=== PATIENT | male | born 1950 | race Caucasian/White ===

== ENCOUNTER 2018-07-01 05:21 | Inpatient (IN) | payer MEDICARE, OTHER ==
[2018-07-01] VITALS (12 sets, daily range): BP systolic 99–127; BP diastolic 63–92
[~2018-07-01] VITALS: Ht 177.8 cm; Wt 67.1 kg
--- NOTE | 2018-07-01 05:30 | NUR ---
PT CAME TO EMERGENCY DEPT COMPLAINING OF ABD PAIN X FEW HOURS. PT STATES HE FEELS CONSTIPATED. PT AXO4. RESPIRATIONS EVEN AND UNLABORED. PT AMBULATORY WITH STEADY GAIT. PT PUT ON THE MONITOR AND PULSE OX. PENDING EVAL FROM ER .
--- NOTE | 2018-07-01 05:50 | NUR ---
PT UNABLE TO GIVE URINE SAMPLE. ER AWARE.
--- NOTE | 2018-07-01 05:51 | NUR ---
EKG AT BEDSIDE.
--- NOTE | 2018-07-01 05:51 | NUR ---
SCRIPT SUPERVISOR AT BEDSIDE.
[2018-07-01] MEDS ORDERED: MORPHINE SULFATE INJ 4 MG/ML DISP.SYRIN ONE ×2 (06:08→07:54)
[2018-07-01] MEDS ORDERED: ONDANSETRON HCL/PF 4 MG/2 ML VIAL ONE (06:08)
[2018-07-01 06:09] LABS: BASOPHILS % (AUTO) 0.2 % (0.0-2.0); EOSINOPHILS % (AUTO) 0.2 % (0.0-6.0); HEMATOCRIT 46 % (39-51); HEMOGLOBIN 15.5 g/dL (13.5-17.5); LYMPHOCYTES # (AUTO) 1.8 /CMM (0.8-4.8); LYMPHOCYTES % (AUTO) 18.5 % (20.0-44.0); MEAN CORPUSCULAR HGB CONC 34 g/dl (31.0-36.0); MEAN CORPUSCULAR VOLUME 95 fL (80-96); MONOCYTES # (AUTO) 0.5 /CMM (0.1-1.30); MONOCYTES % (AUTO) 4.8 % (2.0-12.0); NEUTROPHILS # (AUTO) 7.4 /CMM (1.8-8.9); NEUTROPHILS % (AUTO) 76.3 % (43.0-81.0); PLATELET COUNT (AUTO) 255 /CMM (150-450); RED BLOOD CELL COUNT(AUTO) 4.87 MIL/uL (4.5-6.0); WHITE BLOOD COUNT (AUTO) 9.7 K/uL (4.3-11.0)
[2018-07-01 06:23] LABS: CALCIUM, SERUM 9.7 mg/dL (8.5-10.1); CARBON DIOXIDE 24 mmol/L (21-32); CHLORIDE 100 mmol/L (98-107); CREATININE 1.3 mg/dL (0.6-1.3); GLUCOSE 136 mg/dL (74-106); SODIUM SERUM 139 mmol/L (136-145); UREA NITROGEN, BLOOD 22 mg/dL (7-18)
[2018-07-01 06:30] LABS: ALANINE AMINOTRANSFERASE 30 U/L (12-78); ALBUMIN 3.4 g/dL (3.4-5.0); ALKALINE PHOSPHATASE 100 U/L (46-116); ASPARTATE AMINOTRANSFERASE 33 U/L (15-37); BILIRUBIN,DIRECT 0.4 mg/dL (0.0-0.2); BILIRUBIN,TOTAL 1.2 mg/dL (0.2-1.0); LIPASE 76 U/L (73-393); TOTAL PROTEIN, SERUM 7.9 g/dL (6.4-8.2)
[2018-07-01] MEDS ORDERED: ONDANSETRON HCL/PF - ER 4 MG/2 ML VIAL IV ONE (06:30)
[2018-07-01] MEDS ORDERED: MORPHINE SULFATE INJ 10 MG/ML DISP.SYRIN IV ONE ×2 (06:30→08:00)
[2018-07-01] MEDS ORDERED: PIPERACILLIN /TAZOBACTAM 3.375 G VIAL IV ONE (06:40)
--- NOTE | 2018-07-01 06:46 | NUR ---
PT TAKEN TO CT.
[2018-07-01] MEDS ORDERED: VANCOMYCIN 1 GM in IV D5W 250 ML IV ONE (07:00)
[2018-07-01] MEDS ORDERED: PIPERACILLIN /TAZOBACTAM 3.375 G in IV D5W 50 ML IV ONE (07:00)
[2018-07-01] MEDS ORDERED: IV NS 0.9% 1,000 ML BAG IV ONE (07:00)
[2018-07-01] MEDS ORDERED: LIDOCAINE 2% JEL UROJET 10 ML MM ONE ×2 (07:07→18:30)
[2018-07-01 07:29] LABS: BILIRUBIN,URINE 1+ (NEGATIVE); BLOOD, URINE 1+ Ery/uL (NEGATIVE); COLOR,URINE YELLOW (YELLOW); KETONES,URINE 2+ (NEGATIVE); LEUKOCYTE ESTERASE ,URINE NEGATIVE (NEGATIVE); NITRITE, URINE NEGATIVE (NEGATIVE); PH,URINE 5.5 (5.0-8.0); PROTEIN,URINE 1+ mg/dl (NEGATIVE); UGLUCOSE NEGATIVE (NEGATIVE)
[2018-07-01 07:30] LABS: APPEARANCE,URINE CLEAR (CLEAR)
--- NOTE | 2018-07-01 07:38 | NUR ---
REPORT GIVEN TO JAYME VIRK FOR CARLA.
[2018-07-01] MEDS ORDERED: CELE-85 PO (07:41)
[2018-07-01 08:02] LABS: BACTERIA,URINE Few /HPF (None Seen); SQUAMOUS EPITHELIAL CELL,UR Rare /HPF (None Seen)
[2018-07-01 08:03] LABS: FINE GRANULAR CASTS,URINE Few /LPF (None Seen); HYALINE CASTS, URINE Few /LPF (None Seen)
[2018-07-01 08:04] LABS: MUCUS,URINE Few /LPF (None Seen)
--- NOTE | 2018-07-01 08:13 | NUR ---
Report/Nurse Knowledge exchange given to RNElsa. No obvious distress, No acute changes states pain "feels better-but still there." Made aware of plan of care and admission. Going to [facility]
--- NOTE | 2018-07-01 08:20 | NUR ---
Paged David Santos for admission
--- NOTE | 2018-07-01 09:07 | NUR ---
Bed changed to ICU Report/Nurse Knowledge Exhange to ANDRA Hilario. No acute changes, No obvious distress states pain "better but still there. Pt made aware of plan of care. Transported to ICU per kristin
--- NOTE | 2018-07-01 10:19 | NUR ---
INITIAL PT BROUGHT UP FROM EMERGENCY ROOM FOR C/C OF LLQ ABDOMINAL PAIN FOR SEVERAL DAYS. PT HAS A HISTORY OF DIVERTICULITIS. CURRENTLY PT ON VRT MECHANIC ST AT 106 ALERT ORIENTED X 4 PT 91% ON ROOM AIR PLACED ON NASAL CANNULA AT 2 LPM SATURATION IMPROVED TO 97%.PT HAS LLQ ABD PAIN WITH MOVEMENT PT GIVEN WARM BLANKET PT HAS TWO PIV ONE IN RIGHT HAND 18G AND THE OTHER 20 G IN LAC BOTH FLUSH WELL WITHOUT PAIN REDNESS OR SWELLING SITE CLEAN AND DRY BOTH CONTINUE TO BE H/L CALL MARAVILLA NEXT TP PT BED IN LOW POSITION WILL CONTINUE TO MONITOR
[2018-07-01] MEDS ORDERED: Z GUARD REMEDY 2 OZ OINT TP PRN (11:00)
[2018-07-01] MEDS ORDERED: ACETAMINOPHEN 325 MG TABLET PO PRN (11:00)
[2018-07-01] MEDS ORDERED: ONDANSETRON HCL/PF 4 MG/2 ML VIAL IVP PRN (11:00)
[2018-07-01] MEDS: IV NS 0.9% 1,000 ML IV PRN ×2 (11:11→23:52)
[2018-07-01] MEDS ORDERED: PIPERACILLIN /TAZOBACTAM 3.375 G in IV D5W 50 ML IV SCH (12:00)
[2018-07-01] MEDS: PIPERACILLIN /TAZOBACTAM 3.375 G in IV D5W 100 ML IV SCH ×2 (14:19→20:31)
[2018-07-01] MEDS: ENOXAPARIN SODIUM 40 MG/0.4 ML DISP.SYRIN SQ SCH (14:22)
[2018-07-01] MEDS: PANTOPRAZOLE 40 MG VIAL IV SCH (14:34)
[2018-07-01] MEDS: MORPHINE SULFATE INJ 2 MG/ML DISP.SYRIN IV PRN (14:37)
--- NOTE | 2018-07-01 18:08 | NUR ---
NO URINE OUTPUT SINCE ADMISSION BLADDER SCAN SHOWED ZERO URINE IN BLADDER. MD BHAVYA RUBIO ORDERED RAMOS CATH.
--- NOTE | 2018-07-01 19:30 | NUR ---
BED AND BREAKFAST INNKEEPER: RECEIVED PT IN BED, A/O X 3. ON 2L 02 VIA NC WT NO ACUTE DISTRESS. ON MONITORING FOR ABDOMINAL PAIN WT NONE NOTED AT THIS TIME. NSR-ST ON NUCLEAR CONTROL ROOM OPERATOR WT HR IN THE 90s-LOW 100s. RT. HAND IV RUNNING NS AT 100ML/HR WT NO S/S OF INFILTRATIONS. RAMOS CATH. DRAINING TEJAL COLORED URINE TO GRAVITY. SAFETY PRECAUTION NOTED WT HOB AT 35 DEGREES, BED LOCKED AND IN LOW POSITION AND WT UPPER SIDE RAILS UP ENABLER. CALL LIGHT KEPT WITHIN REACH.
--- NOTE | 2018-07-01 23:40 | NUR ---
COSMETIC DENTIST: SUKUMAR BASURTO NP CALLED AND UPDATED PT's CONDITION. NOTIFIED HER OF LOW URINE OUTPUT SINCE PT RECEIVED AT 1900. CLOTH PRINTER WT ORDER FOR SURGICAL CONSULT WT DR. FRENCH IN AM. NOTED AND CARRIED OUT.
[2018-07-02] VITALS (26 sets, daily range): BP systolic 82–132; BP diastolic 52–87
[2018-07-02] MEDS: MORPHINE SULFATE INJ 2 MG/ML DISP.SYRIN IV PRN ×2 (00:04→08:24)
[2018-07-02] MEDS: PIPERACILLIN /TAZOBACTAM 3.375 G in IV D5W 100 ML IV SCH ×3 (04:27→21:55)
[2018-07-02 05:27] LABS: BASOPHILS % (AUTO) 0.1 % (0.0-2.0); HEMATOCRIT 45 % (39-51); HEMOGLOBIN 15.1 g/dL (13.5-17.5); LYMPHOCYTES # (AUTO) 0.4 /CMM (0.8-4.8); LYMPHOCYTES % (AUTO) 2.6 % (20.0-44.0); MEAN CORPUSCULAR HGB CONC 34 g/dl (31.0-36.0); MEAN CORPUSCULAR VOLUME 94 fL (80-96); MONOCYTES # (AUTO) 0.7 /CMM (0.1-1.30); MONOCYTES % (AUTO) 4.5 % (2.0-12.0); NEUTROPHILS # (AUTO) 13.7 /CMM (1.8-8.9); NEUTROPHILS % (AUTO) 92.8 % (43.0-81.0); PLATELET COUNT (AUTO) 233 /CMM (150-450); RED BLOOD CELL COUNT(AUTO) 4.78 MIL/uL (4.5-6.0); WHITE BLOOD COUNT (AUTO) 14.8 K/uL (4.3-11.0)
[2018-07-02 05:50] LABS: ALBUMIN 2.1 g/dL (3.4-5.0); BILIRUBIN,TOTAL 0.8 mg/dL (0.2-1.0); CALCIUM, SERUM 8.5 mg/dL (8.5-10.1); CREATININE 1.4 mg/dL (0.6-1.3); MAGNESIUM 1.7 mg/dL (1.8-2.4); PHOSPHORUS 4.1 mg/dL (2.5-4.9); POTASSIUM 4.4 mmol/L (3.5-5.1)
[2018-07-02 06:33] LABS: THYROID STIMULATING HORMONE 1.063 uIU/mL (0.358-3.74)
--- NOTE | 2018-07-02 06:45 | NUR ---
RN ICU: NO CARLA DURING THE SHIFT. NO C/O ABDOMINAL PAIN AT THIS TIME. LACTIC ACID IMPROVED AT 2.0 FROM 2.9. TOTAL URINE [id number]. UNABLE TO COLLECT STOOL SPECIMEN DUE TO NO BOWEL MOVEMENT. WILL ENDORSE TO DAY SHIFT FOR CONTINUITY OF CARE.
--- NOTE | 2018-07-02 08:00 | NUR ---
Pt assisted with am hygiene, updated on plan of care.
--- NOTE | 2018-07-02 08:30 | NUR ---
Pt admits to abd pain pain 8/10 Morphine 2 mg IV.
--- NOTE | 2018-07-02 09:00 | NUR ---
Physical therapist at bedside. Pt was able to get out of bed, ambulated in the room.
[2018-07-02] MEDS: IV NS 0.9% 1,000 ML IV PRN (09:49)
[2018-07-02] MEDS: ENOXAPARIN SODIUM 40 MG/0.4 ML DISP.SYRIN SQ SCH (10:50)
--- NOTE | 2018-07-02 11:30 | NUR ---
Mag 1.7. will repalce with Mag sulf 2 Gr.
[2018-07-02] MEDS: Magnesium 1GM/D5W 100ML PREMIX 100 ML IV SCH ×2 (12:20→13:45)
[2018-07-02] MEDS: PANTOPRAZOLE 40 MG VIAL IV SCH (13:59)
--- NOTE | 2018-07-02 14:00 | NUR ---
FC discontinued. pt able to use urinal. 100 ml out
[2018-07-02] MEDS ORDERED: IV NS 0.9% 1,000 ML IV PRN (15:13)
[2018-07-02] MEDS ORDERED: Magnesium 1GM/D5W 100ML PREMIX PIGGYBACK IV ONE (15:30)
--- NOTE | 2018-07-02 15:30 | NUR ---
Dr. Carpenter consulted if ok to start po clear liquid. will wait till tomorrow to start clear liquid diet. NPO for now continued, will change iv to D51/2 ns with 20 meq of K at 125 ml/h.
[2018-07-02] MEDS: Potassium Chloride 20 MEQ in IV D5/0.45 NACL 1,000 ML IV PRN (16:41)
--- NOTE | 2018-07-02 18:00 | NUR ---
Clean catch urine sample sent for UA and Cult.
[2018-07-02 21:46] LABS: BILIRUBIN,URINE NEGATIVE (NEGATIVE); BLOOD, URINE 1+ Ery/uL (NEGATIVE); COLOR,URINE YELLOW (YELLOW); KETONES,URINE NEGATIVE (NEGATIVE); LEUKOCYTE ESTERASE ,URINE NEGATIVE (NEGATIVE); NITRITE, URINE NEGATIVE (NEGATIVE); PH,URINE 5.5 (5.0-8.0); PROTEIN,URINE 1+ mg/dl (NEGATIVE); UGLUCOSE NEGATIVE (NEGATIVE); UROBILINOGEN,URINE 0.2 EU/dL (0.2)
[2018-07-02 21:59] LABS: APPEARANCE,URINE SLIGHTLY CLOUDY (CLEAR)
[2018-07-02 22:01] LABS: BACTERIA,URINE 2+ /HPF (None Seen); SQUAMOUS EPITHELIAL CELL,UR 0-2 /HPF (None Seen); URIC ACID CRYSTALS,URINE Few /HPF (None Seen); URINE AMORPHOUS URATE Many /HPF (None Seen)
[2018-07-03] VITALS (10 sets, daily range): BP systolic 89–145; BP diastolic 54–90
[2018-07-03] MEDS: Potassium Chloride 20 MEQ in IV D5/0.45 NACL 1,000 ML IV PRN ×3 (00:24→22:58)
[2018-07-03 04:44] LABS: HEMATOCRIT 38 % (39-51); HEMOGLOBIN 12.5 g/dL (13.5-17.5); LYMPHOCYTES # (AUTO) 0.3 /CMM (0.8-4.8); LYMPHOCYTES % (AUTO) 2.3 % (20.0-44.0); MEAN CORPUSCULAR HGB CONC 33 g/dl (31.0-36.0); MEAN CORPUSCULAR VOLUME 93 fL (80-96); MONOCYTES # (AUTO) 0.5 /CMM (0.1-1.30); MONOCYTES % (AUTO) 3.6 % (2.0-12.0); NEUTROPHILS # (AUTO) 13.7 /CMM (1.8-8.9); NEUTROPHILS % (AUTO) 94.1 % (43.0-81.0); PLATELET COUNT (AUTO) 202 /CMM (150-450); RED BLOOD CELL COUNT(AUTO) 4.04 MIL/uL (4.5-6.0); WHITE BLOOD COUNT (AUTO) 14.5 K/uL (4.3-11.0)
[2018-07-03 04:46] LABS: CALCIUM, SERUM 8.6 mg/dL (8.5-10.1); CREATININE 1.2 mg/dL (0.6-1.3); MAGNESIUM 2.5 mg/dL (1.8-2.4); POTASSIUM 4.2 mmol/L (3.5-5.1)
[2018-07-03] MEDS: PIPERACILLIN /TAZOBACTAM 3.375 G in IV D5W 100 ML IV SCH ×3 (05:35→20:25)
--- NOTE | 2018-07-03 06:10 | NUR ---
TRANSPORTED PT TO [facility] AND ENDORSED CARE TO SARAH RN FOR CONTINUITY OF CARE. GAVE BEDSIDE REPORT.
--- NOTE | 2018-07-03 06:11 | NUR ---
RN [facility] NOTE PATIENT IS AOX3, SPEECH CLEAR, TRANSFERRED FROM ICU VIA W/C, DENIES ANY CARDIAC OR RESPIRATORY DISTRESS, ON TELE SR, SKIN KEPT CLEAN, DRY AND INTACT, NPO, RIGHT HAND #18G WITH KCL 20MEQ AT 125ML/HR, LAC #20G SL, BOTH DRESSINGS DRY AND INTACT, PATENT, FLUSHING, BED IN LOW LOCKED POSITION, CALL LIGHT WITHIN REACH WILL CONTINUE TO MONITOR FOR ANY CHANGES IN CONDITION.
--- NOTE | 2018-07-03 07:15 | NUR ---
RN OPENING NOTES RECEIVED REPORT FROM SUEDE CLEANER RN. PT IS A&O X 3. PT IS ON 2 L NC, NPO, L AC 20 GAUGE SL, R HAND IV 18 GAUGE. PT DENIES ANY PAIN AT PRESENT MOMENT AND STATED THAT HE WAS NOT ABLE TO SLEEP LAST NIGHT, NO RESPIRATORY DISTRESS SYMPTOMS. BED IS IN LOW POSITION AND LOCKED. CALL LIGHT WITHIN REACH.
[2018-07-03] MEDS: ENOXAPARIN SODIUM 40 MG/0.4 ML DISP.SYRIN SQ SCH (10:37)
--- NOTE | 2018-07-03 13:00 | NUR ---
RN NOTE: CALLED AND SPOKE WITH DR. GALLARDO RE: THE PATIENT'S ABDOMINAL PAIN 4. MD WAS INFORMED THAT THE PATIENT AHS TYLENOL AND MORPHINE 2MG FOR MILD AND SEVERE PAIN. PER MD, CHANGE THE INDICATION FOR MORPHINE 2MG TO MODERATE TO SEVERE PAIN (4-10). ORDER CHANGED, NOTED AND CARRIED OUT. PATIENT MADE AWARE.
[2018-07-03] MEDS ORDERED: MORPHINE SULFATE INJ 2 MG/ML DISP.SYRIN IV PRN (14:00)
[2018-07-03] MEDS: PANTOPRAZOLE 40 MG VIAL IV SCH (14:35)
--- NOTE | 2018-07-03 18:49 | NUR ---
RN CLOSING NOTES GAVE REPORT TO FORENSICS TEAM DIRECTOR RN. PT IS A&O X 3. PT IS ON 2 L NC,CLEAR LIQUIDS DIET, L AC 20 GAUGE SL, R HAND IV 18 GAUGE. PT DENIES ANY PAIN AT PRESENT MOMENT, NO RESPIRATORY DISTRESS SYMPTOMS. BED IS IN LOW POSITION AND LOCKED. CALL LIGHT WITHIN REACH. WILL ENDORSE CONTINUITY OF CARE TO FORENSICS TEAM DIRECTOR RN.
--- NOTE | 2018-07-03 20:00 | NUR ---
RN [facility] - NOTES - PATIENT IS AOX3, SPEECH CLEAR, DENIES ANY CARDIAC OR RESPIRATORY DISTRESS, ON TELE SR, SKIN KEPT CLEAN, DRY AND INTACT, ON CLEAR LIQUID DIET, LEFT AC 20G WITH KCL 20MEQ AT 125ML/HR, RIGHT HAND 18G SL, BOTH DRESSINGS DRY AND INTACT, PATENT, FLUSHING, BED IN LOW LOCKED POSITION, CALL LIGHT WITHIN REACH WILL CONTINUE TO MONITOR FOR ANY CHANGES IN CONDITION.
--- NOTE | 2018-07-03 23:54 | NUR ---
pt refused midnight vital signs, says he wants to sleep
[2018-07-04 04:00] VITALS: BP 130/85
[2018-07-04] MEDS: PIPERACILLIN /TAZOBACTAM 3.375 G in IV D5W 100 ML IV SCH ×2 (05:19→13:02)
[2018-07-04 06:29] LABS: BASOPHILS % (AUTO) 0.2 % (0.0-2.0); HEMATOCRIT 36 % (39-51); LYMPHOCYTES # (AUTO) 0.5 /CMM (0.8-4.8); LYMPHOCYTES % (AUTO) 3.4 % (20.0-44.0); MEAN CORPUSCULAR HGB CONC 33 g/dl (31.0-36.0); MEAN CORPUSCULAR VOLUME 93 fL (80-96); MONOCYTES # (AUTO) 0.5 /CMM (0.1-1.30); MONOCYTES % (AUTO) 3.3 % (2.0-12.0); NEUTROPHILS % (AUTO) 93.1 % (43.0-81.0); PLATELET COUNT (AUTO) 189 /CMM (150-450); RED BLOOD CELL COUNT(AUTO) 3.86 MIL/uL (4.5-6.0); WHITE BLOOD COUNT (AUTO) 16.1 K/uL (4.3-11.0)
[2018-07-04 06:43] LABS: CALCIUM, SERUM 8.7 mg/dL (8.5-10.1); CREATININE 1.3 mg/dL (0.6-1.3); PHOSPHORUS 1.3 mg/dL (2.5-4.9); POTASSIUM 3.5 mmol/L (3.5-5.1)
--- NOTE | 2018-07-04 07:05 | NUR ---
RN NOTES RECEIVED PT ON BED, AOX3, ON 2L N/C , RESPIRATION EVEN AND UNLABORED, ON TELE SR HR IN 70'S , LEFT AC IV SITE 20G WITH KCL 20MEQ AT 125ML/HR RUNNING , RIGHT HAND 18G SL, BOTH DRESSINGS DRY AND INTACT, PATENT, FLUSHING, SR UP x3, CALL LIGHT WITHIN EASY REACH ,BED LOCKED AND IN LOWEST POSITION , CONTINUE TO MONITOR.
[2018-07-04 08:00] VITALS: BP 124/81
[2018-07-04] MEDS: Potassium Chloride 20 MEQ in IV D5/0.45 NACL 1,000 ML IV PRN ×2 (09:08→21:16)
[2018-07-04 09:32] LABS: BAND % (MANUAL) 15 % (0.0-5.0); EOSINOPHILS % (MANUAL) 1 % (0-4); LYMPHOCYTES % (MANUAL) 1 % (16-48); MONOCYTES % (MANUAL) 4 % (0-11.0); NEUTROPHILS % (MANUAL) 79 (42-76)
[2018-07-04] MEDS ORDERED: CT SWABBABLE VALVE TRANS SET 1 EA INFUS.SET MC ONE (10:00)
[2018-07-04] MEDS ORDERED: IOHEXOL-300 100 ML VIAL IV ONE (10:00)
[2018-07-04] MEDS ORDERED: IV NS 0.9% 250 ML IV ONE (10:00)
[2018-07-04] MEDS ORDERED: NEUTRA PHOS 1 POWD.PACKET PO ONE (10:30)
[2018-07-04] MEDS: ENOXAPARIN SODIUM 40 MG/0.4 ML DISP.SYRIN SQ SCH (10:36)
[2018-07-04 11:36] LABS: CREATININE, URINE 86.3 MG/DL (30.0-125.0); URINE TOTAL PROTEIN 95.6 mg/dL (0-11.9)
[2018-07-04 11:39] LABS: APPEARANCE,URINE CLEAR (CLEAR); BILIRUBIN,URINE NEGATIVE (NEGATIVE); BLOOD, URINE 1+ Ery/uL (NEGATIVE); COLOR,URINE YELLOW (YELLOW); KETONES,URINE NEGATIVE (NEGATIVE); LEUKOCYTE ESTERASE ,URINE NEGATIVE (NEGATIVE); NITRITE, URINE NEGATIVE (NEGATIVE); PH,URINE 5.5 (5.0-8.0); PROTEIN,URINE 1+ mg/dl (NEGATIVE); UGLUCOSE NEGATIVE (NEGATIVE); UROBILINOGEN,URINE 0.2 EU/dL (0.2)
[2018-07-04 11:55] LABS: BACTERIA,URINE Rare /HPF (None Seen); FINE GRANULAR CASTS,URINE Few /LPF (None Seen); RBC,URINE 0-2 /HPF (0-2); SQUAMOUS EPITHELIAL CELL,UR None Seen /HPF (None Seen); URINE AMORPHOUS PHOSPHATES Many /HPF (None Seen); WBC,URINE NONE SEEN /HPF (0-3)
[2018-07-04 12:25] VITALS: BP 128/82
[2018-07-04 12:30] LABS: EOSINOPHIL,URINE None Seen
[2018-07-04] MEDS: PANTOPRAZOLE 40 MG VIAL IV SCH (13:37)
--- NOTE | 2018-07-04 14:00 | NUR ---
RN NOTES CALL RECEIVED FROM RADIOLOGIST REGRADING CRITICAL ABD CT RESULTS, DR FRENCH AN DR GALLARDO NOTIFIED, SURGICAL CONSENT OBTAINED FROM PT PER DR FRENCH ORDER .
[2018-07-04 16:00] VITALS: BP 134/88
[2018-07-04] MEDS ORDERED: LIDOCAINE HCL/PF 1% 30 ML SDV ONE (16:08)
[2018-07-04] MEDS ORDERED: BUPIVACAINE MPF 0.5% W/EPI INJ 30 ML VIAL ONE (16:08)
[2018-07-04] MEDS ORDERED: BUPIVACAINE 0.5 % PF 150 MG/30 ML VIAL ONE (16:08)
[2018-07-04] MEDS ORDERED: ANESTHESIA TRAY IN PYXIS 1 EA TRAY MC ONE (16:08)
--- NOTE | 2018-07-04 16:13 | NUR ---
RN NOTES PT TO OR AT THIS TIME .
[2018-07-04] MEDS ORDERED: ROCURONIUM BROMIDE 50 MG/5 ML ONE ×2 (16:22→17:16)
[2018-07-04] MEDS ORDERED: DESFLURANE 240 ML BOTTLE IH ONE (16:30)
[2018-07-04] MEDS ORDERED: FENTANYL PF 100MCG/2ML AMPUL ONE (17:03)
[2018-07-04] MEDS ORDERED: METRONIDAZOLE 500MG/ NS 100ML 100 ML IV ONE (17:28)
[2018-07-04] MEDS ORDERED: FEE PK DOSING 1 MIN EA MC ONE (17:43)
[2018-07-04] MEDS ORDERED: HYDROMORPHONE INJ 2 MG/ML DISP.SYRIN ONE (18:35)
[2018-07-04 20:00] VITALS: BP 118/71
--- NOTE | 2018-07-04 20:00 | NUR ---
MS/NOTES: PT. CAME BACK FROM POST OP AT ABOUT 1955. ALERT AND ORIENTED X 3. W/ DRESSING INTACT MID ABDOMEN W/ MEPILEX COVERED. W/ COLOSTOMY W/ SLIGHT RED TINGED DRAINAGE NOTED. W/ MAXIMO DRAINING SEROSANGUINOUS DRAINAGE NOTED. W/ F/C DRAINING YELLOW COLOR URINE. W/ SCD ON. W/ RT. ARM G 22 PATENT AND INTACT W/ IVF ON. INSERTED LFA G 20 DUE TO PT. ON MULTIPLE ANTIBIOTICS. PT. REQUESTED ICE CHIPS ONLY. " I WANT TO SLEEP. PLS. I AM TIRED." CALL LIGHT W/REACH. WILL CONTINUE TO MONITOR.
[2018-07-04] MEDS: VANCOMYCIN 0.75 GM in IV D5W 250 ML IV SCH (21:15)
[2018-07-04] MEDS: FLUCONAZOLE IN NS 100 MG in PREMIX 1 EA IV SCH ×2 (22:03)
[2018-07-04] MEDS: MEROPENEM 1 G in IV NS 0.9% 100 ML IV SCH (22:26)
--- NOTE | 2018-07-04 22:45 | NUR ---
MS/RN NOTED: REPORT GIVEN TO SULLY DAVID FOR CARLA.
--- NOTE | 2018-07-04 22:50 | NUR ---
MS RN NOTES Assume care of patient. Patient on bed comfortably asleep. No discomfort noted at this time. Will continue to monitor accordingly.
[2018-07-05] MEDS: CEFAZOLIN 1 GM in IV D5W 50 ML IV SCH ×2 (00:43→08:00)
[2018-07-05] MEDS: METRONIDAZOLE 500MG/ NS 100ML 500 MG in PREMIX 1 EA IV SCH ×2 (01:03→10:38)
[2018-07-05] MEDS: IV D5/0.45 NACL W/20 MEQ KCL 1L IV PRN ×6 (03:28→20:43)
[2018-07-05 04:00] VITALS: BP 134/85
--- NOTE | 2018-07-05 06:29 | NUR ---
MS RN CLOSING NOTES Patient awake on high-Coppola's position on bed with patent peripheral IV lines RFa G#22 with KCL infusing well @ 150ml/hr as ordered; LFA G#20 SL. With patent MAXIMO drain suction to drain with serosanguineous fluid output noted. FC removed as ordered. Instructed patient that he may feel burning sensation but have to report to HCP for worsening pain, and no UO within 2 hours. Encouraged patient to increase oral fluid intake as tolerated. Urinal at bedside. Total Urine output 900 ml clear yellow. Patient denies discomfort at this time. No SOB/respiratory distress noted, on O2 via NC @ 2LPM. All needs attended. Due meds given as ordered. Kept bed low and locked, call light at bedside. Endorsed to the next shift.
[2018-07-05 07:15] LABS: BASOPHILS % (AUTO) 0.2 % (0.0-2.0); HEMATOCRIT 38 % (39-51); HEMOGLOBIN 12.6 g/dL (13.5-17.5); LYMPHOCYTES # (AUTO) 0.5 /CMM (0.8-4.8); LYMPHOCYTES % (AUTO) 2.8 % (20.0-44.0); MEAN CORPUSCULAR HGB CONC 33 g/dl (31.0-36.0); MEAN CORPUSCULAR VOLUME 93 fL (80-96); MONOCYTES % (AUTO) 6.2 % (2.0-12.0); NEUTROPHILS # (AUTO) 14.9 /CMM (1.8-8.9); NEUTROPHILS % (AUTO) 90.8 % (43.0-81.0); PLATELET COUNT (AUTO) 224 /CMM (150-450); RED BLOOD CELL COUNT(AUTO) 4.08 MIL/uL (4.5-6.0); WHITE BLOOD COUNT (AUTO) 16.4 K/uL (4.3-11.0)
[2018-07-05 07:26] LABS: ALBUMIN 1.7 g/dL (3.4-5.0); BILIRUBIN,TOTAL 0.5 mg/dL (0.2-1.0); CREATININE 1.1 mg/dL (0.6-1.3); POTASSIUM 3.8 mmol/L (3.5-5.1); TOTAL PROTEIN, SERUM 5.9 g/dL (6.4-8.2)
--- NOTE | 2018-07-05 07:30 | NUR ---
RN AM SHIFT NOTE PATIENT IN BED, ALERT AND ORTENTED X4. NO COMPLAINTS OR PAIN AT THIS TIME. IV PATENT AND INTACT. ATB THERAPY RUNNING, CLEAR LIQUIDS ORDERERD ONLY AT THIS TIME. F/C DICONTINUED, USE OF URINAL. VITALS WNL CONTINUE TO MONITOR. WOUND CULTURE PENDING ABD. CONTINUE TO MONITOR.
[2018-07-05 08:00] VITALS: BP 133/89
[2018-07-05 08:36] LABS: BAND % (MANUAL) 2 % (0.0-5.0); LYMPHOCYTES % (MANUAL) 3 % (16-48); MONOCYTES % (MANUAL) 8 % (0-11.0); NEUTROPHILS % (MANUAL) 87 (42-76)
[2018-07-05] MEDS: METOCLOPRAMIDE HCL 10 MG/2 ML VIAL IV SCH ×4 (09:03→23:05)
[2018-07-05] MEDS: VANCOMYCIN 0.75 GM in IV D5W 250 ML IV SCH ×2 (09:04→20:43)
[2018-07-05] MEDS: ENOXAPARIN SODIUM 40 MG/0.4 ML DISP.SYRIN SQ SCH (10:25)
[2018-07-05] MEDS: MEROPENEM 1 G in IV NS 0.9% 100 ML IV SCH ×2 (10:38→22:07)
[2018-07-05] MEDS ORDERED: K PHOS NEUTRAL 250 MG TABLET PO ONE (11:30)
[2018-07-05 13:00] VITALS: BP 133/89
[2018-07-05 16:00] VITALS: BP 124/78
[2018-07-05] MEDS: PANTOPRAZOLE 40 MG VIAL IV SCH (16:24)
--- NOTE | 2018-07-05 19:15 | NUR ---
RN CLOSING NOTE PATIENT IN BED, ALERT AND ORTENTED X4. NO COMPLAINTS OR PAIN AT THIS TIME. IV PATENT AND INTACT. ATB THERAPY RUNNING, CLEAR LIQUIDS ORDERERD ONLY AT THIS TIME. F/C DICONTINUED, USE OF URINAL. VITALS WNL CONTINUE TO MONITOR. WOUND CULTURE PENDING ABD. IV ATB THERAPY FLAGYL AND ANCEPH STOPPED. CONTINUE MERRUM AND VANCO. IV FLUIDS STILL RUNNING 150ML. EMPTIED MAXIMO DRAIN 100ML SEROSANGUINEOUS FLUID, EMPTIED COLOSTOMY BAG WITH 300 ML SEROSANGUINEOUS FLUID. CONTINUE TO MONITOR PATIENT.
[2018-07-05 20:00] VITALS: BP 132/86
--- NOTE | 2018-07-05 20:00 | NUR ---
RN OPENING NOTES RECEIVED REPORT FROM BOLA VIRK. PATIENT A/A/O X4, ABLE TO MAKE NEEDS KNOWN. BREATHING EVEN & UNLABORED, TOLERATING ROOM AIR. DENIES ANY SOB OR DIFFICULTY BREATHING. RADIAL PULSES PRESENT. LEFT FOREARM IV #20 W/ IVF D5 1/2 NS W/ 20 MEQ KCL INFUSING WELL @ 150 ML/HR. ABLE TO AMBULATE TO BATHROOM W/ ASSIST & USE URINAL. DENIES ANY PAIN OR DISCOMFORT @ THIS TIME. SAFETY MEASURES IN PLACE W/ SIDE RAILS UP & CALL LIGHT WITHIN REACH. INSTRUCTED TO USE CALL LIGHT FOR ASSISTANCE. WILL CONTINUE TO MONITOR.
[2018-07-05 21:00] VITALS: BP 132/86
[2018-07-05] MEDS: FLUCONAZOLE IN NS 100 MG in PREMIX 1 EA IV SCH ×2 (23:05)
[2018-07-06] MEDS: IV D5/0.45 NACL W/20 MEQ KCL 1L IV PRN ×2 (03:23)
[2018-07-06 05:00] VITALS: BP 146/89
[2018-07-06] MEDS: METOCLOPRAMIDE HCL 10 MG/2 ML VIAL IV SCH ×3 (06:04→18:54)
[2018-07-06] MEDS: VANCOMYCIN 0.75 GM in IV D5W 250 ML IV SCH (07:58)
[2018-07-06 07:59] LABS: EOSINOPHILS % (AUTO) 0.5 % (0.0-6.0); HEMATOCRIT 37 % (39-51); HEMOGLOBIN 12.4 g/dL (13.5-17.5); LYMPHOCYTES # (AUTO) 1.2 /CMM (0.8-4.8); LYMPHOCYTES % (AUTO) 8.5 % (20.0-44.0); MEAN CORPUSCULAR HGB CONC 34 g/dl (31.0-36.0); MEAN CORPUSCULAR VOLUME 93 fL (80-96); MONOCYTES # (AUTO) 1.3 /CMM (0.1-1.30); MONOCYTES % (AUTO) 9.5 % (2.0-12.0); NEUTROPHILS % (AUTO) 81.5 % (43.0-81.0); PLATELET COUNT (AUTO) 264 /CMM (150-450); RED BLOOD CELL COUNT(AUTO) 3.98 MIL/uL (4.5-6.0); WHITE BLOOD COUNT (AUTO) 13.6 K/uL (4.3-11.0)
[2018-07-06 08:00] VITALS: BP 154/99
[2018-07-06 08:06] LABS: ALBUMIN 1.8 g/dL (3.4-5.0); BILIRUBIN,TOTAL 0.6 mg/dL (0.2-1.0); CREATININE 1.1 mg/dL (0.6-1.3); POTASSIUM 3.6 mmol/L (3.5-5.1); TOTAL PROTEIN, SERUM 5.9 g/dL (6.4-8.2)
[2018-07-06] MEDS: MEROPENEM 1 G in IV NS 0.9% 100 ML IV SCH ×2 (09:25→20:53)
[2018-07-06] MEDS: ENOXAPARIN SODIUM 40 MG/0.4 ML DISP.SYRIN SQ SCH (10:29)
[2018-07-06] MEDS ORDERED: ZOLPIDEM TARTRATE 5 MG TABLET PO PRN (12:30)
[2018-07-06] MEDS: METRONIDAZOLE 500MG/ NS 100ML 500 MG in PREMIX 1 EA IV SCH ×2 (12:46→21:55)
[2018-07-06 13:00] VITALS: BP 118/70
[2018-07-06] MEDS: PANTOPRAZOLE 40 MG VIAL IV SCH (15:40)
[2018-07-06 16:00] VITALS: BP 133/84
[2018-07-06] MEDS ORDERED: POTASSIUM CHLORIDE 20 MEQ TAB.PRT.SR PO ONE (17:00)
[2018-07-06] MEDS ORDERED: FUROSEMIDE 20 MG/2 ML VIAL IV ONE (17:00)
--- NOTE | 2018-07-06 19:51 | NUR ---
RN CLOSING NOTE RN CLOSING NOTE PATIENT OUTPUT MAXIMO DRAIN 20ML, COLOSTOMY BAG CHANGED OUTPUT RED AND BROWN LIQUID, NO FORMED STOOL. COLOSTOMY BAG CHANGED. IV MEDICATION HUNG. MD SAW PATIENT AND D/C IV FLUIDS AND GAVE DOSE OF LASIX AND POTASSIUM. PATIENT WAS ABLE TO AMBULATE AND GET OUT OF BED. CONTINUE TO MONITOR.
[2018-07-06 20:00] VITALS: BP 115/78
[2018-07-06 22:41] VITALS: BP 115/78
[2018-07-07] MEDS: METOCLOPRAMIDE HCL 10 MG/2 ML VIAL IV SCH ×4 (00:54→18:03)
[2018-07-07 04:00] VITALS: BP 126/81
[2018-07-07] MEDS: METRONIDAZOLE 500MG/ NS 100ML 500 MG in PREMIX 1 EA IV SCH ×3 (05:04→21:14)
--- NOTE | 2018-07-07 06:48 | NUR ---
RN CLOSING NOTE WITH NO ACUTE DISTRESS OBSERVED OVERNIGHT. AFEBRILE. ATB GIVEN ORDERED. DRESSING CHANGE DONE FOR NOTED SOILAGE. MID-ABDOMINAL AREA SURGICAL SITE WITH JENNIFER INTACT, NO BLEEDING/DRAINAGE NOTED, NO SIGNS OF ACUTE INFECTION. COLOSTOMY FUNCTIONING WELL, BAG CHANGED NEEDED. MAXIMO DRAIN INTACT AND IN PLACE, CONNECTION TO SUCTION BULB WITH SEROSANGUINEOUS DRAINAGE. NEEDS ANTICIPATED AND MET. SAFETY AND COMFORT ENSURED. CALL LIGHT IN REACH. WILL ENDORSE ACCORDINGLY.
--- NOTE | 2018-07-07 07:00 | NUR ---
MS RN OPENING NOTE RECEIVED REPORT FROM BEAM MACHINE OPERATOR NURSE. PT RESTING ON BED. ALERT AND ORIENTED X3. PT ON ROOM AIR WITH NO ACUTE DISTRESS AND SOB NOTED. IV SITE LEFT AC 20G, DRESSING CDI. MID-ABDOMINAL AREA SURGICAL SITE WITH JENNIFER INTACT, NO BLEEDING/DRAINAGE NOTED, NO SIGNS OF ACUTE INFECTION. COLOSTOMY FUNCTIONING WELL. MAXIMO DRAIN INTACT AND IN PLACE, CONNECTION TO SUCTION BULB WITH SEROSANGUINEOUS DRAINAGE. SAFETY AND COMFORT ENSURED. BED LOCKED AND IN LOWEST POSITION. CALL LIGHT WITHIN REACH. WILL CONTINUE TO MONITOR THROUGHOUT SHIFT.
[2018-07-07 07:16] LABS: ALBUMIN 1.8 g/dL (3.4-5.0); BILIRUBIN,TOTAL 0.8 mg/dL (0.2-1.0); CALCIUM, SERUM 8.2 mg/dL (8.5-10.1); MAGNESIUM 1.7 mg/dL (1.8-2.4); PHOSPHORUS 2.7 mg/dL (2.5-4.9); POTASSIUM 3.6 mmol/L (3.5-5.1); TOTAL PROTEIN, SERUM 5.6 g/dL (6.4-8.2)
[2018-07-07 07:26] LABS: BASOPHILS % (AUTO) 0.1 % (0.0-2.0); EOSINOPHILS % (AUTO) 0.6 % (0.0-6.0); HEMATOCRIT 36 % (39-51); HEMOGLOBIN 12.1 g/dL (13.5-17.5); LYMPHOCYTES # (AUTO) 1.4 /CMM (0.8-4.8); LYMPHOCYTES % (AUTO) 9.5 % (20.0-44.0); MEAN CORPUSCULAR HGB CONC 33 g/dl (31.0-36.0); MEAN CORPUSCULAR VOLUME 92 fL (80-96); MONOCYTES # (AUTO) 1.1 /CMM (0.1-1.30); MONOCYTES % (AUTO) 7.2 % (2.0-12.0); NEUTROPHILS # (AUTO) 12.2 /CMM (1.8-8.9); NEUTROPHILS % (AUTO) 82.6 % (43.0-81.0); PLATELET COUNT (AUTO) 271 /CMM (150-450); RED BLOOD CELL COUNT(AUTO) 3.94 MIL/uL (4.5-6.0); WHITE BLOOD COUNT (AUTO) 14.7 K/uL (4.3-11.0)
[2018-07-07 08:00] VITALS: BP 132/89
[2018-07-07] MEDS: MEROPENEM 1 G in IV NS 0.9% 100 ML IV SCH ×2 (09:08→21:14)
--- NOTE | 2018-07-07 09:15 | NUR ---
MS RN NOTES ASSESSED PATIENT'S COLOSTOMY SITE, OSTOMY PINK, AREA CLEAN, DRY, AND INTACT. PATIENT EDUCATED ABOUT COLOSTOMY CARE AND GIVEN COLOSTOMY CARE HANDOUTS.
[2018-07-07] MEDS: Magnesium 1GM/D5W 100ML PREMIX 100 ML IV SCH ×2 (11:25→12:48)
[2018-07-07] MEDS: ENOXAPARIN SODIUM 40 MG/0.4 ML DISP.SYRIN SQ SCH (11:27)
[2018-07-07] MEDS ORDERED: POTASSIUM CHLORIDE 20 MEQ TAB.PRT.SR PO ONE (12:30)
[2018-07-07] MEDS: PANTOPRAZOLE 40 MG VIAL IV SCH (15:18)
[2018-07-07 16:00] VITALS: BP 126/80
--- NOTE | 2018-07-07 19:05 | NUR ---
MS RN CLOSING NOTE PT RESTING ON BED. ALERT AND ORIENTED X3. PT ON ROOM AIR WITH NO ACUTE DISTRESS AND SOB NOTED. IV SITE LEFT UPPER ARM 20G, DRESSING CDI. MID-ABDOMINAL AREA SURGICAL SITE WITH JENNIFER INTACT, NO BLEEDING/DRAINAGE NOTED, NO SIGNS OF ACUTE INFECTION. PT AFEBRILE. COLOSTOMY FUNCTIONING WELL. MAXIMO DRAIN INTACT AND IN PLACE, CONNECTION TO SUCTION BULB WITH SEROSANGUINEOUS DRAINAGE. SAFETY AND COMFORT ENSURED. BED LOCKED AND IN LOWEST POSITION. CALL LIGHT WITHIN REACH. NO ACUTE CHANGES THROUGHOUT SHIFT. WILL ENDORSE TO RELAY MAN NURSE FOR CARLA.
[2018-07-07 20:00] VITALS: BP 128/64
[2018-07-08 04:00] VITALS: BP 135/74
[2018-07-08] MEDS: METOCLOPRAMIDE HCL 10 MG/2 ML VIAL IV SCH ×4 (04:06→18:29)
[2018-07-08] MEDS: METRONIDAZOLE 500MG/ NS 100ML 500 MG in PREMIX 1 EA IV SCH ×3 (04:06→21:14)
[2018-07-08] MEDS: MORPHINE SULFATE INJ 4 MG/ML DISP.SYRIN IV PRN ×2 (04:17→21:14)
[2018-07-08 06:22] LABS: BASOPHILS % (AUTO) 0.1 % (0.0-2.0); EOSINOPHILS % (AUTO) 0.6 % (0.0-6.0); HEMATOCRIT 36 % (39-51); LYMPHOCYTES # (AUTO) 1.3 /CMM (0.8-4.8); LYMPHOCYTES % (AUTO) 7.8 % (20.0-44.0); MEAN CORPUSCULAR HGB CONC 33 g/dl (31.0-36.0); MEAN CORPUSCULAR VOLUME 92 fL (80-96); MONOCYTES % (AUTO) 5.7 % (2.0-12.0); NEUTROPHILS # (AUTO) 14.7 /CMM (1.8-8.9); NEUTROPHILS % (AUTO) 85.8 % (43.0-81.0); PLATELET COUNT (AUTO) 327 /CMM (150-450); RED BLOOD CELL COUNT(AUTO) 3.91 MIL/uL (4.5-6.0); WHITE BLOOD COUNT (AUTO) 17.1 K/uL (4.3-11.0)
[2018-07-08 06:26] LABS: CALCIUM, SERUM 8.3 mg/dL (8.5-10.1); CREATININE 1.1 mg/dL (0.6-1.3); MAGNESIUM 2.3 mg/dL (1.8-2.4); POTASSIUM 4.6 mmol/L (3.5-5.1)
[2018-07-08 06:59] VITALS: BP 125/64
[2018-07-08 08:00] VITALS: BP 130/80
[2018-07-08] MEDS: MEROPENEM 1 G in IV NS 0.9% 100 ML IV SCH ×2 (09:08→21:14)
--- NOTE | 2018-07-08 11:30 | NUR ---
DR. FRENCH IN AND MAXIMO BULB REMOVED.TOLERATED WELL.
[2018-07-08] MEDS: PANTOPRAZOLE 40 MG VIAL IV SCH (15:09)
[2018-07-08 16:00] VITALS: BP 123/72
--- NOTE | 2018-07-08 17:30 | NUR ---
SMALL AMT. SOFT STOOL DRAINING FROM COLOSTOMY.
--- NOTE | 2018-07-08 18:00 | NUR ---
STARTED ON INCENTIVE SPIROMETER,POST OP DRESSING CHANGED.UP AMBULATING IN HALLS.
[2018-07-08 20:00] VITALS: BP 103/78
[2018-07-09 04:00] VITALS: BP 119/79
[2018-07-09] MEDS: METOCLOPRAMIDE HCL 10 MG/2 ML VIAL IV SCH ×5 (05:55→23:54)
[2018-07-09] MEDS: METRONIDAZOLE 500MG/ NS 100ML 500 MG in PREMIX 1 EA IV SCH ×3 (05:57→21:28)
[2018-07-09 06:41] LABS: BASOPHILS % (AUTO) 0.1 % (0.0-2.0); EOSINOPHILS % (AUTO) 0.7 % (0.0-6.0); HEMATOCRIT 39 % (39-51); HEMOGLOBIN 12.8 g/dL (13.5-17.5); LYMPHOCYTES # (AUTO) 1.7 /CMM (0.8-4.8); LYMPHOCYTES % (AUTO) 8.7 % (20.0-44.0); MEAN CORPUSCULAR HGB CONC 33 g/dl (31.0-36.0); MEAN CORPUSCULAR VOLUME 93 fL (80-96); MONOCYTES # (AUTO) 1.5 /CMM (0.1-1.30); MONOCYTES % (AUTO) 7.6 % (2.0-12.0); NEUTROPHILS # (AUTO) 16.6 /CMM (1.8-8.9); NEUTROPHILS % (AUTO) 82.9 % (43.0-81.0); PLATELET COUNT (AUTO) 418 /CMM (150-450); RED BLOOD CELL COUNT(AUTO) 4.14 MIL/uL (4.5-6.0)
[2018-07-09 06:54] LABS: CREATININE 1.1 mg/dL (0.6-1.3); POTASSIUM 4.6 mmol/L (3.5-5.1)
[2018-07-09 07:58] LABS: BAND % (MANUAL) 6 % (0.0-5.0); EOSINOPHILS % (MANUAL) 1 % (0-4); LYMPHOCYTES % (MANUAL) 11 % (16-48); MONOCYTES % (MANUAL) 4 % (0-11.0); NEUTROPHILS % (MANUAL) 78 (42-76)
[2018-07-09 08:00] VITALS: BP 117/75
[2018-07-09] MEDS: MEROPENEM 1 G in IV NS 0.9% 100 ML IV SCH ×2 (09:37→20:20)
[2018-07-09] MEDS ORDERED: IOHEXOL-300 100 ML VIAL IV ONE (12:30)
[2018-07-09] MEDS ORDERED: IV NS 0.9% 250 ML IV ONE (12:31)
[2018-07-09] MEDS ORDERED: CT SWABBABLE VALVE TRANS SET 1 EA INFUS.SET MC ONE (12:31)
[2018-07-09] MEDS: PANTOPRAZOLE 40 MG VIAL IV SCH (15:18)
[2018-07-09 16:00] VITALS: BP 105/85
[2018-07-09 16:01] VITALS: BP 117/75
[2018-07-09] MEDS ORDERED: FEE PK DOSING 1 MIN EA MC ONE (17:44)
[2018-07-09] MEDS: VANCOMYCIN 1 GM in IV D5W 250 ML IV SCH (18:52)
[2018-07-09] MEDS: FLUCONAZOLE IN NS 100 MG in PREMIX 1 EA IV SCH ×2 (18:53)
--- NOTE | 2018-07-09 19:46 | NUR ---
HOSPITAL NURSE OPENING NOTES RECEIVED REPORT FROM SISAL OPERATOR NURSE. PT RESTING ON BED. ALERT AND ORIENTED X3. PT ON ROOM AIR WITH NO ACUTE DISTRESS AND SOB NOTED. IV SITE LEFT AC 20G, DRESSING CDI. MID-ABDOMINAL AREA SURGICAL SITE WITH JENNIFER INTACT, NO BLEEDING/DRAINAGE NOTED, NO SIGNS OF ACUTE INFECTION. COLOSTOMY FUNCTIONING WELL. MAXIMO DRAIN INTACT AND IN PLACE, CONNECTION TO SUCTION BULB WITH SEROSANGUINEOUS DRAINAGE. SAFETY AND COMFORT ENSURED. BED LOCKED AND IN LOWEST POSITION. CALL LIGHT WITHIN REACH. WILL CONTINUE TO MONITOR THROUGHOUT SHIFT.
--- NOTE | 2018-07-09 19:47 | NUR ---
MS RN CLOSING NOTES PT RESTING ON BED. ALERT AND ORIENTED X3. PT ON ROOM AIR WITH NO ACUTE DISTRESS AND SOB NOTED. IV SITE LEFT UPPER ARM 20G, DRESSING CDI. MID-ABDOMINAL AREA SURGICAL SITE WITH JENNIFER INTACT, NO BLEEDING/DRAINAGE NOTED, NO SIGNS OF ACUTE INFECTION. PT AFEBRILE. COLOSTOMY FUNCTIONING WELL. MAXIMO DRAIN INTACT AND IN PLACE, CONNECTION TO SUCTION BULB WITH SEROSANGUINEOUS DRAINAGE. SAFETY AND COMFORT ENSURED. BED LOCKED AND IN LOWEST POSITION. CALL LIGHT WITHIN REACH. NO ACUTE CHANGES THROUGHOUT SHIFT. WILL ENDORSE TO EDGE STAINER NURSE FOR CARLA.
[2018-07-09 20:00] VITALS: BP 106/66
[2018-07-09] MEDS: MORPHINE SULFATE INJ 2 MG/ML DISP.SYRIN IV PRN (20:21)
[2018-07-10] MEDS: MORPHINE SULFATE INJ 2 MG/ML DISP.SYRIN IV PRN
[2018-07-10 04:00] VITALS: BP 131/70
[2018-07-10] MEDS: METRONIDAZOLE 500MG/ NS 100ML 500 MG in PREMIX 1 EA IV SCH ×2 (05:08→13:54)
[2018-07-10] MEDS: METOCLOPRAMIDE HCL 10 MG/2 ML VIAL IV SCH ×3 (05:08→18:38)
[2018-07-10] MEDS: VANCOMYCIN 1 GM in IV D5W 250 ML IV SCH ×2 (06:09→18:38)
[2018-07-10 06:41] LABS: BASOPHILS % (AUTO) 0.2 % (0.0-2.0); EOSINOPHILS % (AUTO) 0.3 % (0.0-6.0); HEMATOCRIT 35 % (39-51); HEMOGLOBIN 11.7 g/dL (13.5-17.5); LYMPHOCYTES # (AUTO) 1.4 /CMM (0.8-4.8); LYMPHOCYTES % (AUTO) 6.4 % (20.0-44.0); MEAN CORPUSCULAR HGB CONC 34 g/dl (31.0-36.0); MEAN CORPUSCULAR VOLUME 93 fL (80-96); MONOCYTES # (AUTO) 1.4 /CMM (0.1-1.30); MONOCYTES % (AUTO) 6.2 % (2.0-12.0); NEUTROPHILS # (AUTO) 19.3 /CMM (1.8-8.9); NEUTROPHILS % (AUTO) 86.9 % (43.0-81.0); PLATELET COUNT (AUTO) 466 /CMM (150-450); RED BLOOD CELL COUNT(AUTO) 3.74 MIL/uL (4.5-6.0); WHITE BLOOD COUNT (AUTO) 22.2 K/uL (4.3-11.0)
[2018-07-10 06:46] LABS: CALCIUM, SERUM 7.7 mg/dL (8.5-10.1); CREATININE 0.9 mg/dL (0.6-1.3); MAGNESIUM 1.9 mg/dL (1.8-2.4); PHOSPHORUS 3.1 mg/dL (2.5-4.9); POTASSIUM 4.2 mmol/L (3.5-5.1)
[2018-07-10 07:43] LABS: BAND % (MANUAL) 2 % (0.0-5.0); LYMPHOCYTES % (MANUAL) 6 % (16-48); MONOCYTES % (MANUAL) 5 % (0-11.0); NEUTROPHILS % (MANUAL) 87 (42-76)
[2018-07-10 08:00] VITALS: BP 120/94
--- NOTE | 2018-07-10 08:12 | NUR ---
MS RN OPENING NOTE RECEIVED REPORT FROM WASHER HAND NURSE. PT RESTING ON BED. ALERT AND ORIENTED X3. PT ON ROOM AIR WITH NO ACUTE DISTRESS AND SOB NOTED. IV SITE LEFT AC 20G TO BE REMOVED, NEW RFA #22 INTACT AND PATENT. MID-ABDOMINAL AREA SURGICAL SITE WITH JENNIFER INTACT, NO BLEEDING/DRAINAGE NOTED, NO SIGNS OF ACUTE INFECTION. COLOSTOMY FUNCTIONING WELL. MAXIMO DRAIN INTACT AND IN PLACE, CONNECTION TO SUCTION BULB WITH SEROSANGUINEOUS DRAINAGE. SAFETY AND COMFORT ENSURED. BED LOCKED AND IN LOWEST POSITION. CALL LIGHT WITHIN REACH. WILL CONTINUE TO MONITOR THROUGHOUT SHIFT.
[2018-07-10] MEDS: MEROPENEM 1 G in IV NS 0.9% 100 ML IV SCH ×2 (09:56→20:33)
[2018-07-10] MEDS: PANTOPRAZOLE 40 MG VIAL IV SCH (14:42)
[2018-07-10 16:00] VITALS: BP_SYST 118; BP_DIAS 70; BP_DIAS 74
[2018-07-10] MEDS: FLUCONAZOLE IN NS 100 MG in PREMIX 1 EA IV SCH ×2 (18:37)
--- NOTE | 2018-07-10 19:30 | NUR ---
MS RN NOTE: RECEIVED PT ON BED ALERT AND ORIENTED X3. ABLE TO MAKE NEEDS KNOWN. NO APPARENT DISTRESS NOTED. DENIES PAIN AND DISCOMFORT AT THIS TIME. NO SOB NOTED. COLOSTOMY INTACT AND PATENT. KEPT CLEAN, DRY AND COMFORTABLE. CALL LIGHT PLACED WITHIN REACH. SAFETY AND FALL PRECAUTIONS OBSERVED AND MAINTAINED. WILL CONTINUE TO MONITOR PT.
[2018-07-10 20:00] VITALS: BP 106/66
--- NOTE | 2018-07-10 20:40 | NUR ---
MS RN CLOSING NOTES PT RESTING ON BED. ALERT AND ORIENTED X3. PT ON ROOM AIR WITH NO ACUTE DISTRESS AND SOB NOTED. IV SITE LEFT UPPER ARM 20G, DRESSING CDI. MID-ABDOMINAL AREA SURGICAL SITE WITH JENNIFER INTACT, NO BLEEDING/DRAINAGE NOTED, NO SIGNS OF ACUTE INFECTION. PT AFEBRILE. COLOSTOMY FUNCTIONING WELL. MAXIMO DRAIN INTACT AND IN PLACE, CONNECTION TO SUCTION BULB WITH SEROSANGUINEOUS DRAINAGE. SAFETY AND COMFORT ENSURED. BED LOCKED AND IN LOWEST POSITION. CALL LIGHT WITHIN REACH. NO ACUTE CHANGES THROUGHOUT SHIFT. WILL ENDORSE TO PARKING STATION ATTENDANT NURSE FOR CARLA.
--- NOTE | 2018-07-10 20:41 | NUR ---
MS VIRK NOTES PATIENT PULLED IV LINE OUT AT APPROXIMATELY 1700. MEDICATION ADMINISTRATION DELAYED. MEDICATION RESUMED WHEN IV LINE REPLACED. Addendum: 07/10/18 at 2046 by LALA BARRON RN DISREGARD. WRONG PATIENT.
[2018-07-10] MEDS: MORPHINE SULFATE INJ 4 MG/ML DISP.SYRIN IV PRN (21:01)
[2018-07-11] MEDS: METOCLOPRAMIDE HCL 10 MG/2 ML VIAL IV SCH ×5 (00:29→23:25)
[2018-07-11 04:00] VITALS: BP 122/71
[2018-07-11 05:30] LABS: BASOPHILS # (AUTO) 0.1 /CMM (0.0-0.2); BASOPHILS % (AUTO) 0.4 % (0.0-2.0); EOSINOPHILS % (AUTO) 0.4 % (0.0-6.0); HEMATOCRIT 35 % (39-51); HEMOGLOBIN 11.7 g/dL (13.5-17.5); LYMPHOCYTES # (AUTO) 1.1 /CMM (0.8-4.8); LYMPHOCYTES % (AUTO) 5.6 % (20.0-44.0); MEAN CORPUSCULAR HGB CONC 33 g/dl (31.0-36.0); MEAN CORPUSCULAR VOLUME 93 fL (80-96); MONOCYTES # (AUTO) 1.6 /CMM (0.1-1.30); NEUTROPHILS # (AUTO) 17.3 /CMM (1.8-8.9); NEUTROPHILS % (AUTO) 85.6 % (43.0-81.0); PLATELET COUNT (AUTO) 491 /CMM (150-450); RED BLOOD CELL COUNT(AUTO) 3.83 MIL/uL (4.5-6.0); WHITE BLOOD COUNT (AUTO) 20.3 K/uL (4.3-11.0)
[2018-07-11 05:41] LABS: CALCIUM, SERUM 7.9 mg/dL (8.5-10.1); CREATININE 0.9 mg/dL (0.6-1.3); MAGNESIUM 1.9 mg/dL (1.8-2.4); PHOSPHORUS 3.2 mg/dL (2.5-4.9); POTASSIUM 4.4 mmol/L (3.5-5.1)
[2018-07-11] MEDS: VANCOMYCIN 1 GM in IV D5W 250 ML IV SCH ×2 (06:06→17:11)
--- NOTE | 2018-07-11 06:33 | NUR ---
MS RN NOTE: NO CHANGES NOTED THROUGHOUT THE SHIFT. NO APPARENT DISTRESS NOTED. DENIES PAIN AND DISCOMFORT AT THIS TIME. ON ROOM AIR, NO SOB NOTED. COLOSTOMY INTACT AND PATENT, DRAINED 150CC OUTPUT. CALL LIGHT PLACED WITHIN REACH. KEPT CLEAN, DRY AND COMFORTABLE. SAFETY AND FALL PRECAUTIONS OBSERVED AND MAINTAINED. WILL ENDORSE TO DAY SHIFT RN FOR CONTINUITY OF CARE.
--- NOTE | 2018-07-11 07:00 | NUR ---
MS RN OPENING NOTES RECEIVED PT IN BED, A/OX4. NPO SINCE MIDNIGHT FOR PROCEDURE. CONSENTS SIGNED. NO APPARENT DISTRESS NOTED. 08/09 DISCOMFORT AT THIS TIME ON R ABD SIDE. ON ROOM AIR, NO SOB NOTED. COLOSTOMY INTACT AND PATENT, DRAINED 150CC OUTPUT DURING TALENT SOLUTIONS MANAGER. CALL LIGHT PLACED WITHIN REACH. URINAL AT BEDSIDE, CLEAN, DRY AND COMFORTABLE. SAFETY AND FALL PRECAUTIONS OBSERVED AND MAINTAINED. WILL CONT TO MONITOR.
[2018-07-11 08:00] VITALS: BP 128/80
[2018-07-11] MEDS: MEROPENEM 1 G in IV NS 0.9% 100 ML IV SCH ×2 (09:19→20:11)
[2018-07-11] MEDS: MORPHINE SULFATE INJ 2 MG/ML DISP.SYRIN IV PRN ×2 (09:22→20:11)
[2018-07-11] MEDS ORDERED: NALOXONE PREFILLED SYRINGE 2 MG/2 ML SYRINGE IV ONE (12:00)
[2018-07-11] MEDS ORDERED: FENTANYL PF 250MCG/5ML AMPUL IV ONE (12:00)
[2018-07-11] MEDS ORDERED: MIDAZOLAM HCL 5MG/ML VIAL 25 MG/5 ML VIAL IV ONE (12:00)
[2018-07-11] MEDS ORDERED: IV NS 0.9% 500 ML IV ONE (13:00)
[2018-07-11] MEDS: PANTOPRAZOLE 40 MG VIAL IV SCH (14:46)
[2018-07-11 16:00] VITALS: BP 122/83
[2018-07-11] MEDS: FLUCONAZOLE IN NS 100 MG in PREMIX 1 EA IV SCH ×2 (18:33)
--- NOTE | 2018-07-11 19:00 | NUR ---
MS RN CLOSING NOTES PT RESTING IN BED, NO S/SX OF DISCOMFORT OR RESP DISTRESS NOTED. COLOSTOMY BAG CHANGED WITH 100ML OUTPUT OF SOFT BROWN STOOL. STOMA NO S/SX OF INFECTION. BED IN LOCKED/LOWEST POSITION. CALL LIGHT IN REACH. WILL ENDORSE TO PM SHIFT FOR CARLA.
--- NOTE | 2018-07-11 19:15 | NUR ---
MS/RN INITIAL NOTES RECEIVED PT IN BED, A/O X4. ON ROOM AIR, NO SOB NOTED. RFA G#20 HEPLOCK INTACT AND PATENT. NO S/SX OF INFECTION NOTED. HOB ELEVATED. SAFETY MEASURES IN PLACED. CALL LIGHT WITHIN EASY REACH. WILL CONT TO MONITOR
[2018-07-11 20:00] VITALS: BP 111/72
[2018-07-12 04:00] VITALS: BP 131/73
[2018-07-12] MEDS: VANCOMYCIN 1 GM in IV D5W 250 ML IV SCH ×2 (05:08→17:46)
[2018-07-12] MEDS: METOCLOPRAMIDE HCL 10 MG/2 ML VIAL IV SCH ×4 (05:09→23:24)
[2018-07-12 06:44] LABS: BASOPHILS % (AUTO) 0.2 % (0.0-2.0); EOSINOPHILS % (AUTO) 0.5 % (0.0-6.0); HEMATOCRIT 35 % (39-51); HEMOGLOBIN 11.7 g/dL (13.5-17.5); LYMPHOCYTES # (AUTO) 1.4 /CMM (0.8-4.8); LYMPHOCYTES % (AUTO) 7.8 % (20.0-44.0); MEAN CORPUSCULAR HGB CONC 34 g/dl (31.0-36.0); MEAN CORPUSCULAR VOLUME 92 fL (80-96); MONOCYTES # (AUTO) 1.7 /CMM (0.1-1.30); MONOCYTES % (AUTO) 9.9 % (2.0-12.0); NEUTROPHILS # (AUTO) 14.1 /CMM (1.8-8.9); NEUTROPHILS % (AUTO) 81.6 % (43.0-81.0); PLATELET COUNT (AUTO) 530 /CMM (150-450); RED BLOOD CELL COUNT(AUTO) 3.78 MIL/uL (4.5-6.0); WHITE BLOOD COUNT (AUTO) 17.3 K/uL (4.3-11.0)
--- NOTE | 2018-07-12 06:51 | NUR ---
RN NOTES PT IN STABLE CONDITION. NO ACUTE CHANGES THROUGHOUT SHIFT. SAFETY MEASURES OBSERVED AT ALL TIMES. ALL NEEDS ANTICIPATED. ENDORSED TO AM SHIFT RN FOR CARLA
[2018-07-12 07:07] LABS: CALCIUM, SERUM 8.2 mg/dL (8.5-10.1); CREATININE 0.9 mg/dL (0.6-1.3); POTASSIUM 4.4 mmol/L (3.5-5.1)
--- NOTE | 2018-07-12 07:20 | NUR ---
RN OPENING NOTE RECEIVED PATIENT IN BED AWAKE AND ALERT. NO COMPLAINS OF ANY MAJOR PAIN, BUT WAS SAYING HE HAS BACK PAIN DUE TO LAYING IN BED FOR A WHILE. HE REFUSED PAIN MEDICATION FOR THIS. NO COMPLAINS OF ANY SOB OR ANY DISTRESS. ON ROOM AIR. HAS A COLOSTOMY. AMBULATOR AND USES THE URINAL. HAS ABD INCISION. HAS A RIGHT FOREARM #20 INTACT, PATENT AND SALINE LOCKED. BED ON LOW POSITION. CALL LIGHT WITHIN REACH. WILL CONTINUE TO MONITOR
[2018-07-12 07:23] LABS: MAGNESIUM 2.1 mg/dL (1.8-2.4); PHOSPHORUS 2.9 mg/dL (2.5-4.9)
[2018-07-12 08:00] VITALS: BP 108/69
[2018-07-12] MEDS: MEROPENEM 1 G in IV NS 0.9% 100 ML IV SCH (08:31)
[2018-07-12] MEDS: PANTOPRAZOLE 40 MG VIAL IV SCH (14:03)
[2018-07-12 16:00] VITALS: BP 109/68
[2018-07-12] MEDS: FLUCONAZOLE IN NS 100 MG in PREMIX 1 EA IV SCH ×2 (17:46)
[2018-07-12] MEDS ORDERED: LEVOFLOXACIN (750 MG) 750 MG TABLET PO SCH (18:00)
--- NOTE | 2018-07-12 19:30 | NUR ---
RN NOTES RECEIVED PT. AWAKE ON BED, A/OX4, COLOSTOMY BAG IN PLACE, DENIES PAIN AT THIS TIME, NO SOB, CALL LIGHT WITHIN REACH, [id number], CONTINUE TO MONITOR
--- NOTE | 2018-07-12 19:33 | NUR ---
RN CLOSING NOTE PATIENT IN BED, AWAKE, WATCHING TV. NO S/SX OF DISCOMFORT OR RESP DISTRESS NOTED. COLOSTOMY BAG CHANGED WITH 200ML OUTPUT OF SOFT BROWN STOOL. STOMA NO S/SX OF INFECTION. BED IN LOCKED/LOWEST POSITION. CALL LIGHT IN REACH. WILL ENDORSE TO PM SHIFT FOR CARLA
[2018-07-12 20:00] VITALS: BP 108/65
[2018-07-12] MEDS: METRONIDAZOLE 500 MG TABLET PO SCH (20:51)
[2018-07-12] MEDS: MORPHINE SULFATE INJ 2 MG/ML DISP.SYRIN IV PRN (20:57)
--- NOTE | 2018-07-12 21:04 | NUR ---
RN NOTES COMPLAINED OF GENERALIZED PAIN -MORPHINE 2MG IV GIVEN ORDERED, V/S STABLE
[2018-07-12 22:14] VITALS: BP 105/65
[2018-07-13 04:00] VITALS: BP 114/66
[2018-07-13] MEDS: METRONIDAZOLE 500 MG TABLET PO SCH ×2 (05:11→12:30)
[2018-07-13] MEDS: METOCLOPRAMIDE HCL 10 MG/2 ML VIAL IV SCH ×2 (05:11→12:31)
[2018-07-13] MEDS: MORPHINE SULFATE INJ 2 MG/ML DISP.SYRIN IV PRN ×2 (05:21→15:36)
--- NOTE | 2018-07-13 05:21 | NUR ---
RN NOTES COMPLAINED OF BACK PAIN- MORPHINE 2 MG IV GIVEN ORDERED, V/S STABLE
--- NOTE | 2018-07-13 06:25 | NUR ---
RN NOTES AWAKE, DENIES PAIN, PT. REFUSED TO CHANGE HIS COLOSTOMY BAG.. PT STATED THAT "IT'S ONLY SMALL AMOUNT INSIDE HIS COLOSTOMY BAG", NO SOB, MORNING CARE RENDERED, CALL LIGHT WITHIN REACH, [id number], CONTINUE TO MONITOR
[2018-07-13 06:26] LABS: BASOPHILS # (AUTO) 0.1 /CMM (0.0-0.2); BASOPHILS % (AUTO) 0.6 % (0.0-2.0); EOSINOPHILS % (AUTO) 0.6 % (0.0-6.0); HEMATOCRIT 34 % (39-51); HEMOGLOBIN 11.3 g/dL (13.5-17.5); LYMPHOCYTES # (AUTO) 1.1 /CMM (0.8-4.8); LYMPHOCYTES % (AUTO) 7.9 % (20.0-44.0); MEAN CORPUSCULAR HGB CONC 33 g/dl (31.0-36.0); MEAN CORPUSCULAR VOLUME 93 fL (80-96); MONOCYTES # (AUTO) 1.5 /CMM (0.1-1.30); MONOCYTES % (AUTO) 10.5 % (2.0-12.0); NEUTROPHILS # (AUTO) 11.4 /CMM (1.8-8.9); NEUTROPHILS % (AUTO) 80.4 % (43.0-81.0); PLATELET COUNT (AUTO) 525 /CMM (150-450); RED BLOOD CELL COUNT(AUTO) 3.65 MIL/uL (4.5-6.0); WHITE BLOOD COUNT (AUTO) 14.2 K/uL (4.3-11.0)
[2018-07-13 06:31] LABS: CALCIUM, SERUM 8.6 mg/dL (8.5-10.1); POTASSIUM 4.4 mmol/L (3.5-5.1)
[2018-07-13 08:00] VITALS: BP 121/78
[2018-07-13 08:39] VITALS: BP 121/78
--- NOTE | 2018-07-13 11:53 | NUR ---
RN OPENING NOTE RECEIVED PATIENT IN BED AWAKE AND ALERT. NO COMPLAINS OF ANY PAIN. NO COMPLAINS OF ANY SOB OR ANY DISTRESS. ON ROOM AIR. HAS A COLOSTOMY. AMBULATORY AND USES THE URINAL. HAS ABD INCISION. HAS A RIGHT FOREARM #20 INTACT, PATENT AND SALINE LOCKED. BED ON LOW POSITION. CALL LIGHT WITHIN REACH. WILL CONTINUE TO MONITOR. DC PLANNING FOR TODAY, PATIENT AWARE Addendum: 07/13/18 at 1155 by LAUREL JUAN RN TIME @ 0715
[2018-07-13] MEDS: PANTOPRAZOLE 40 MG VIAL IV SCH (13:50)
--- NOTE | 2018-07-13 15:42 | NUR ---
RN NOTE PATIENT GETTING DISCHARGED TODAY VIA AMBULANCE AT 1730. PATIENT AWARE HE'S GOING TO [facility]. WILL REMOVE JENNIFER FROM THE ABDOMEN INCISION AND WILL REPLACE IT WITH STERI-STRIPS ORDERED. PATIENT ASKED FOR MORPHINE TO BE GIVEN BEFORE THE REMOVAL OF JENNIFER
[2018-07-13 16:00] VITALS: BP 121/74
== END 2018-07-13 18:26 | DRG 853 ==
LOC: ER 05:24 → TELE-TD 07:51 → ICU 08:57 → TELE-TD 07-03 06:09 → MEDSG1 07-04 11:43
PROVIDERS: ADMIT Nurse Practitioner Acute Care; ATTEND Internal Medicine
PROC: 0DBN0ZZ Excision of Sigmoid Colon, Open Approach (ICD-10-PCS; principal; 2018-07-04)
PROC: 0D1N0Z4 Bypass Sigmoid Colon to Cutaneous, Open Approach (ICD-10-PCS; 2018-07-04)
PROC: 0W9F3ZZ Drainage of Abdominal Wall, Percutaneous Approach (ICD-10-PCS; 2018-07-11)
DX: A41.9 Sepsis, unspecified organism (principal); N17.0 Acute kidney failure with tubular necrosis; K65.8 Other peritonitis; K57.20 Diverticulitis of large intestine with perforation and abscess without bleeding; K55.9 Vascular disorder of intestine, unspecified; E87.2 Acidosis; R18.8 Other ascites; L02.211 Cutaneous abscess of abdominal wall; K56.7 Ileus, unspecified; K51.50 Left sided colitis without complications; E83.42 Hypomagnesemia; E83.51 Hypocalcemia; D64.9 Anemia, unspecified; K44.9 Diaphragmatic hernia without obstruction or gangrene; R65.20 Severe sepsis without septic shock; K66.8 Other specified disorders of peritoneum; M48.8X6 Other specified spondylopathies, lumbar region
CPT/HCPCS: 36415; 71045-TC; 75989; 75989-TC; 80048-TC; 80053-TC; 80061-TC; 80076-TC; 80202-TC; 81000-TC; 82570-TC; 82728-TC; 83540-TC; 83605-TC; 83690-TC; 83735-TC; 84100-TC; 84155-TC; 84300-TC; 84443-TC; 84484-TC; 85025-TC; 85045-TC; 85610-TC; 85730-TC; 86850-TC; 87070-TC; 87081-TC; 87086-TC; 87186-TC; 88307-TC; 93307-TC; 97116-TC; 97530-TC; A4216; A6253; A6402; A6403; C9113; G0378; J0690; J1100; J1170; J1450; J1650; J1940; J2185; J2250; J2270; J2310; J2405; J2543; J2704; J2710; J2765; J3010; J3370; J3475; J3480; J3490; J7030; J7040; J7050; J7060; Q9967

== ENCOUNTER 2018-12-26 05:56 | Inpatient (IN) | payer MEDICARE, OTHER ==
[~2018-12-26] VITALS: Ht 172.7 cm; Wt 59.0 kg
[~2018-12-26 05:56] MED LIST: CELE-85 PO
--- NOTE | 2018-12-26 06:05 | NUR ---
RECEIVED PATIENT FOR SCHEDULED PROCEDURE: PARTIAL COLECTOMY WITH REVERSAL COLOSTOMY AN LYSIS OF ADHESION. PATIENT A/O X4 AND AMBULATORY WITH CANE. NO C/O PAIN OR DISCOMFORT. PERIPHERAL LINE IN LAC #20 GAUGE INSERTED AND TOLERATED WELL. NO ACTIVE BLEEDING NOTED. ALL CONSENTS SIGNED AND VERBALIZED GOOD UNDERSTANDING. COLOSTOMY BAG IN LLQ INTACT AND PATENT. BODY SYSTEMS ASSESSED. VITALS WNL. ENCOURAGED USE OF CALL LIGHT FOR ASSISTANCE AND VERBALIZED GOD UNDERSTANDING. ROOM FREE OF CLUTTER AND BELONGINGS KEPT NEAR BEDSIDE. WILL CONTINUE TO MONITOR.
[2018-12-26 06:10] VITALS: BP 140/83
--- NOTE | 2018-12-26 07:15 | NUR ---
PATIENT TAKEN TO O.R. VIA GURNEY IN STABLE CONDITION.
--- NOTE | 2018-12-26 07:30 | NUR ---
MS RN OPENING NOTES REPORT RECEIVED FROM FOOD SERVICE REPRESENTATIVE. PT NOT IN ROOM AND IS CURRENTLY IN OR AT THIS TIME. WILL MONITOR THROUGHOUT SHIFT FOR CONTINUITY OF CARE.
[2018-12-26] MEDS ORDERED: ROCURONIUM BROMIDE 50 MG/5 ML ONE (07:33)
[2018-12-26] MEDS ORDERED: FENTANYL PF 100MCG/2ML AMPUL ONE (07:33)
[2018-12-26] MEDS ORDERED: HYDROMORPHONE INJ 2 MG/ML DISP.SYRIN ONE (07:33)
[2018-12-26] MEDS ORDERED: METRONIDAZOLE 500MG/ NS 100ML 100 ML IV ONE (08:19)
[2018-12-26] MEDS ORDERED: GLUCAGON,HUMAN RECOMBINANT 1 MG/VIAL VIAL ONE (08:51)
[2018-12-26] MEDS ORDERED: HYDROMORPHONE 1 MG/1 ML DISP.SYRIN ONE (10:14)
[2018-12-26 11:00] VITALS: BP 128/72
--- NOTE | 2018-12-26 11:00 | NUR ---
MS RN NOTES-- PT CAME BACK FROM OR S/P PARTIAL COLECTOMY WITH REVERSAL COLOSTOMY IN STABLE CONDITION. PT IS A/O X3, AFEBRILE. RESPIRATIONS ARE EVEN AND UNLABORED, NOT IN ANY ACUTE DISTRESS NOTED. PT C/O PL 6/10 TO ABDOMEN AND IS TOLERABLE. ABDOMEN NOTED WITH MAXIMO DRAIN, 50ML OUT WHEN PT RECEIVED, NOTED WITH BLOODY DRAINAGE. VITAL SIGNS WNL. NOTED WITH RAMOS CATH WITH 50 OUT, DRAINING YELLOW URINE. IV SITE TO LAC INTACT, NO INFILTRATION NOTED. DRESSING KEPT CLEAN AND DRY. SAFETY MEASURES ARE IN PLACE. INSTRUCTED PT TO USE CALL LIGHT WHEN ASSISTANCE IS NEEDED, CALL LIGHT IS LEFT WITHIN REACH. POST OP ORDERS CARRIED OUT. WILL MONITOR THROUGHOUT SHIFT FOR CONTINUITY OF CARE.
[2018-12-26] MEDS: METOCLOPRAMIDE HCL 10 MG/2 ML VIAL IV SCH ×2 (12:54→17:35)
[2018-12-26] MEDS: IV D5/0.45 NACL W/20 MEQ KCL 1L IV PRN ×2 (14:06)
[2018-12-26] MEDS: METRONIDAZOLE 500MG/ NS 100ML 500 MG in PREMIX 1 EA IV SCH ×2 (14:07→23:20)
[2018-12-26 16:00] VITALS: BP 131/86
[2018-12-26] MEDS: ANCEF 1 GM/50 ML D5W IV SCH ×2 (16:19)
[2018-12-26] MEDS: MORPHINE SULFATE INJ 2 MG/ML DISP.SYRIN IV PRN (17:35)
--- NOTE | 2018-12-26 17:40 | NUR ---
MS RN NOTES-- OUTPUT FROM MAXIMO DRAIN 50CC, BLOODY DRAINAGE. DRESSING TO ABDOMEN IS INTACT, KEPT CLEAN AND DRY.
--- NOTE | 2018-12-26 18:24 | NUR ---
MS RN CLOSING NOTES ALL DUE MEDS GIVEN, NEEDS MET AND RENDERED. PT IS A/O X4, AFEBRILE. RESPIRATIONS ARE EVEN AND UNLABORED, NOT IN ANY ACUTE DISTRESS NOTED. C/O PAIN TO ABDOMINAL INCISION SITE 10/09 AND WAS MEDICATED WITH MORPHINE, NOTED TO BE EFFECTIVE. DENIES ANY SOB, N/V. IV SITE TO LAC INTACT, NO INFILTRATION NOTED. DRESSING KEPT CLEAN AND DRY. SAFETY MEASURES ARE IN PLACE. REMINDED PT TO USE CALL LIGHT WHEN ASSISTANCE IS NEEDED, CALL LIGHT IS LEFT WITHIN REACH. WILL ENDORSE TO NEXT SHIFT FOR CONTINUITY OF CARE.
--- NOTE | 2018-12-26 19:15 | NUR ---
MS HARISH INITIAL NOTES RECEIVED REPORT FROM AM NURSE TERENCE AND CHECKED THE PATIENT. HE'S LYING IN BED IN SEMI FOWLERS POSITION WITH SIDE RAILS UP . PT DENIES ANY PAIN AT THIS TIME. NO N/V NOTED WELL,. BREATHING EVEN AND UNLABORED. HE ALSO RECEIVING IVF D51/2 NS WITH KCL 20MEQ AT 100ML/HR. RAMOS TO GRAVITY AND DRAINING CLEAR YELLOW OUTPUT. MAXIMO FOR DRAINAGE INTACT AND 5ML OUTPUT NOTED AT THIS TIME. KEPT HIM WARM AND COMFORTABLE AT ALL TIMES. PLACE CALL LIGHT AT REACH. WILL CONTINUE MONITORING.
[2018-12-26 20:00] VITALS: BP 138/84
[2018-12-26] MEDS ORDERED: ZOLPIDEM TARTRATE 5 MG TABLET PO PRN (22:00)
[2018-12-27] MEDS: METOCLOPRAMIDE HCL 10 MG/2 ML VIAL IV SCH ×4 (00:55→17:38)
[2018-12-27] MEDS: ANCEF 1 GM/50 ML D5W IV SCH ×4 (00:55→10:39)
--- NOTE | 2018-12-27 00:59 | NUR ---
MS MANAGER ZONE NOTES DUE MEDS GIVEN ORDERED. AND PT RESTING COMFORTABLY IN BED WITHOUT ANY ACUTE DISTRESS NOTED. WILL CONTINUE MONITORING.
[2018-12-27] MEDS: MORPHINE SULFATE INJ 2 MG/ML DISP.SYRIN IV PRN (02:03)
[2018-12-27] MEDS: IV D5/0.45 NACL W/20 MEQ KCL 1L IV PRN ×4 (03:41→17:38)
[2018-12-27] MEDS: METRONIDAZOLE 500MG/ NS 100ML 500 MG in PREMIX 1 EA IV SCH (06:47)
--- NOTE | 2018-12-27 07:30 | NUR ---
MS PARI MUTUEL TICKET SELLER CLOSING NOTES PT AWAKE AND ALERT WACTHING TV AT THIS TIME. IVF STILL INFUSING AND ALL DUE MEDS GIVEN. RAMOS STILL INTACT AND PT REQUESTED TO HAVE IT IN ONE MORE DAY BECAUSE ITS DIFFICULT FOR HIM TO MOVED SIDE TO SIDE AND GETTING UP WELL. NO SIGNS OF ANY ACUTE DISTRESS NOTED. KEPT HIM WARM AND COMFORTABLE AT ALL TIMES. PLACE CALL LIGHT AT REACH,. WILL ENDORSE TO AM NURSE FOR CONTINUITY OF CARE.
[2018-12-27 07:44] LABS: HEMATOCRIT 41 % (39-51); HEMOGLOBIN 13.8 g/dL (13.5-17.5); LYMPHOCYTES # (AUTO) 0.7 /CMM (0.8-4.8); LYMPHOCYTES % (AUTO) 3.6 % (20.0-44.0); MEAN CORPUSCULAR HGB CONC 34 g/dl (31.0-36.0); MEAN CORPUSCULAR VOLUME 90 fL (80-96); MONOCYTES # (AUTO) 1.2 /CMM (0.1-1.30); MONOCYTES % (AUTO) 6.9 % (2.0-12.0); NEUTROPHILS # (AUTO) 16.2 /CMM (1.8-8.9); NEUTROPHILS % (AUTO) 89.5 % (43.0-81.0); PLATELET COUNT (AUTO) 252 /CMM (150-450); RED BLOOD CELL COUNT(AUTO) 4.51 MIL/uL (4.5-6.0); WHITE BLOOD COUNT (AUTO) 18.1 K/uL (4.3-11.0)
[2018-12-27 08:00] VITALS: BP 143/83
--- NOTE | 2018-12-27 08:00 | NUR ---
ms rn received on bed,awake,alert,oriented x4,not in any form of distress, respirations even and unlabored,no sob noted, lungs are diminished, abdomen soft, positive bowel sounds, denies pain at this time, will monitor patient. s/p abdominal surgery w/ dressing dry and intact, all needs attended.
[2018-12-27 08:32] LABS: CALCIUM, SERUM 8.7 mg/dL (8.5-10.1); CREATININE 1.4 mg/dL (0.6-1.3); MAGNESIUM 1.9 mg/dL (1.8-2.4); PHOSPHORUS 2.5 mg/dL (2.5-4.9); POTASSIUM 4.6 mmol/L (3.5-5.1)
--- NOTE | 2018-12-27 09:20 | NUR ---
ms pandya breakfast served,due meds given, fairly tolerated w/ nausea, all needs attended
[2018-12-27] MEDS: ENOXAPARIN SODIUM 40 MG/0.4 ML DISP.SYRIN SQ SCH (10:12)
[2018-12-27] MEDS ORDERED: MENTHOL/CETYLPYRD (CEPACOL) 1 LOZ LOZENGE PO PRN (13:00)
--- NOTE | 2018-12-27 14:00 | NUR ---
ms rn on bed, no distress noted.
--- NOTE | 2018-12-27 15:31 | NUR ---
ms rn patient was transferred to room 321 bed 1.
--- NOTE | 2018-12-27 16:00 | NUR ---
ms rn was seen by dr. sylvester, no order at this time, hancock removed w/ x1 urine output.
--- NOTE | 2018-12-27 18:55 | NUR ---
ms rn on bed, no distress noted,all needs attended.
--- NOTE | 2018-12-27 19:00 | NUR ---
MS RN NOTE RECEIVED PT IN STABLE CONDITION A/O X4, CURRENTLY RESTING IN BED, EASILY AROUSABLE WHEN NAME IS CALLED. NO SIGNS OF SOB OR DISTRESS, NO C/O PAIN. SX SITE DRY AND INTACT, NO SIGNS OF INFECTION. MAXIMO DRAIN IN PLACE WITH MINIMAL DISCHARGE. IV IN L AC WITH IV FLUIDS INFUSING. ALL CURRENT NEEDS MET. BED LOW, LOCKED, UPPER RAILS UP, AND CALL LIGHT WITHIN REACH. WILL CONT. TO MONITOR.
[2018-12-27 20:00] VITALS: BP 149/89
[2018-12-28] MEDS: IV D5/0.45 NACL W/20 MEQ KCL 1L IV PRN ×4 (01:46→10:38)
--- NOTE | 2018-12-28 02:00 | NUR ---
MS RN NOTE PT NOTED WITH EMESIS X3, PT STATES THAT HE FEELS LIKE SOMETHING IS IRRITATING HIS THROAT CAUSING GAG REFLEX. [facility] CHARGE NURSE MADE AWARE. WILL CONT. TO MONITOR.
[2018-12-28] MEDS: METOCLOPRAMIDE HCL 10 MG/2 ML VIAL IV SCH ×4 (06:00→17:58)
--- NOTE | 2018-12-28 06:36 | NUR ---
MS RN NOTE PT IN STABLE CONDITION A/O X4, CURRENTLY WATCHING TV. NO SIGNS OF SOB OR DISTRESS, NO C/O PAIN. SX SITE DRY AND INTACT MAXIMO DRAIN IN PLACE WITH 11 ML OUT. IV IN L AC WITH IV FLUIDS INFUSING. ALL CURRENT NEEDS MET. BED LOW, LOCKED, UPPER RAILS UP, AND CALL LIGHT WITHIN REACH. WILL CONT. TO MONITOR AND ENDORSE TO NEXT SHIFT FOR CARLA.
[2018-12-28 07:34] LABS: HEMATOCRIT 40 % (39-51); HEMOGLOBIN 13.4 g/dL (13.5-17.5); LYMPHOCYTES # (AUTO) 0.7 /CMM (0.8-4.8); LYMPHOCYTES % (AUTO) 3.6 % (20.0-44.0); MEAN CORPUSCULAR HGB CONC 34 g/dl (31.0-36.0); MEAN CORPUSCULAR VOLUME 90 fL (80-96); MONOCYTES # (AUTO) 1.4 /CMM (0.1-1.30); MONOCYTES % (AUTO) 7.4 % (2.0-12.0); NEUTROPHILS # (AUTO) 17.3 /CMM (1.8-8.9); PLATELET COUNT (AUTO) 244 /CMM (150-450); RED BLOOD CELL COUNT(AUTO) 4.46 MIL/uL (4.5-6.0); WHITE BLOOD COUNT (AUTO) 19.5 K/uL (4.3-11.0)
[2018-12-28 08:00] VITALS: BP 157/88
--- NOTE | 2018-12-28 08:10 | NUR ---
MS RN RECEIVED ON BED, AWAKE,ALERT,ORIENTED X4,NOT IN ANY FORM OF DISTRESS, RESPIRATIONS EVEN AND UNLABORED,NO SOB NOTED, LUNGS ARE DIMINISHED,ABDOMEN SOFT,POSITIVE BOWEL SOUNDS, MAXIMO DRAIN INTACT W/ SEROUS SANGUENOUS OUTPUT, DRAINING WELL ,DENIES PAIN AT THIS TIME, NOTED IV INFILTRATION AT LEFT AC, ARM SWOLLEN.
--- NOTE | 2018-12-28 09:30 | NUR ---
MS RN STARTED A NEW IV AT LEFT FORE ARM, W/ GOOD VENOUS RETURN.
--- NOTE | 2018-12-28 09:50 | NUR ---
MS VIRK BREAKFAST SERVED,DUE MEDS GIVEN,TOLERATED WELL.
[2018-12-28] MEDS: ENOXAPARIN SODIUM 40 MG/0.4 ML DISP.SYRIN SQ SCH (10:38)
[2018-12-28 15:34] VITALS: BP 158/86
--- NOTE | 2018-12-28 15:46 | NUR ---
MS RN ON BED, SLEEPING,NO DISTRESS NOTED.
--- NOTE | 2018-12-28 18:50 | NUR ---
ms rn on bed, no distress noted.
--- NOTE | 2018-12-28 19:00 | NUR ---
RN esvin opening notes Received Pt from morning nurse. Pt is alert and oriented X4. Respiration is normal. No SOB. No C/O pain. Surgery site is clean, dry and intact. MAXIMO drain is intact and patent. IV sites at Left wrist # 22 is clean, intact, patent and infusing well D5 1/2 NS with KCL 20 meq @ 100 ml/hr. Instructed to call. Safety precautions is maintained. Bed at low position, brakes locked, side rails upX2 and call light is within reach. Will continue to monitor and assist all needs.
--- NOTE | 2018-12-28 19:27 | NUR ---
SULLY mcallister notes Chest X-ray abdomen at the bedside.
[2018-12-28 20:00] VITALS: BP 159/82
[2018-12-28 21:03] VITALS: BP 134/79
[2018-12-28] MEDS: MORPHINE SULFATE INJ 2 MG/ML DISP.SYRIN IV PRN (21:10)
--- NOTE | 2018-12-28 21:15 | NUR ---
RN esvin notes Administered Morphine Sulfate 2 mg IV push as ordered for abdominal pain 12/09 per Pt request. Instructed to call. Will continue to monitor. BP 134/79, Pulse 71.
[2018-12-29] MEDS: METOCLOPRAMIDE HCL 10 MG/2 ML VIAL IV SCH ×5 (00:04→23:19)
--- NOTE | 2018-12-29 02:30 | NUR ---
RN medsurg notes Went to [facility] office SULLY Terrazas to get IV fluid D5 1/2NS with KCL 20 MEQ.
[2018-12-29] MEDS ORDERED: IV PREMIX D5 1/2NS + KCL 1,000 ML IV ONE (02:40)
[2018-12-29] MEDS: IV D5/0.45 NACL W/20 MEQ KCL 1L IV PRN ×2 (02:45)
--- NOTE | 2018-12-29 02:50 | NUR ---
RN medsurg notes Unable to scan bar code for IV fluid D5 1/2 NS with KCL 20 meq. Had to do manually. Received IV fluid from Nursing Ortho Assistant SULLY Terrazas. Verify IV fluid D5 1/2NS with kcl 20 meq with other nurse SULLY Yusuf.
--- NOTE | 2018-12-29 03:30 | NUR ---
RN medsurg notes Verify with Charge Nurse SULLY Sandra and Pharmacy swine extension field specialist Dinh regarding Pt's IV fluid D5 1/2 NS with KCL 20 MEQ.
--- NOTE | 2018-12-29 06:52 | NUR ---
RN medsurg closing notes Pt is resting in bed comfortably watching TV. Awaken easily. Respiration is normal in room air. No SOB. No nausea or vomiting. Pt denies any pain or discomfort at this time. IV sites at L wrist is clean, intact, patent and infusing well D5 1/2 NS with KCL 20 meq @ 100ml/hr. VS is stable. MAXIMO drain is intact, patent and draining 8 ml serous sanguinese. Routine meds given as ordered. All needs met and attended. Kept Pt clean, dry and warm. Instructed to call. Safety precautions is maintained. Bed at low position, brakes locked, side rails upX2 and call light is within reach. Will endorse to morning nurse for CARLA.
[2018-12-29 07:26] LABS: BASOPHILS % (AUTO) 0.1 % (0.0-2.0); HEMATOCRIT 35 % (39-51); HEMOGLOBIN 11.7 g/dL (13.5-17.5); LYMPHOCYTES # (AUTO) 0.6 /CMM (0.8-4.8); LYMPHOCYTES % (AUTO) 3.2 % (20.0-44.0); MEAN CORPUSCULAR HGB CONC 34 g/dl (31.0-36.0); MEAN CORPUSCULAR VOLUME 89 fL (80-96); MONOCYTES # (AUTO) 1.4 /CMM (0.1-1.30); MONOCYTES % (AUTO) 7.1 % (2.0-12.0); NEUTROPHILS # (AUTO) 17.1 /CMM (1.8-8.9); NEUTROPHILS % (AUTO) 89.6 % (43.0-81.0); PLATELET COUNT (AUTO) 196 /CMM (150-450); RED BLOOD CELL COUNT(AUTO) 3.91 MIL/uL (4.5-6.0); WHITE BLOOD COUNT (AUTO) 19.1 K/uL (4.3-11.0)
--- NOTE | 2018-12-29 07:26 | NUR ---
RN OPENING NOTE PT WAS RECEIVED IN BED AT LOWEST AND LOCKED POSITION WITH SIDE RAILS UPX2, A/O X4 BREATHING EVEN AND UNLABORED ON RA WITH NO S/S OF ANY DISTRESS OR PAIN, MAXIMO DRAIN IN PLACE NOTED TO BE SEROSANGUINEOUS, PER NIGHT RN PT VOMITS WHEN TRYING TO INGEST FOOD/LIQUID, NOTED TO HAVE SURGICAL INCISIONS, SAFETY PRECAUTIONS IN PLACE, CALL LIGHT WITHIN REACH, WILL MONITOR PT ACCORDINGLY
[2018-12-29 07:32] LABS: CALCIUM, SERUM 8.8 mg/dL (8.5-10.1); CREATININE 0.9 mg/dL (0.6-1.3); MAGNESIUM 1.9 mg/dL (1.8-2.4); PHOSPHORUS 2.1 mg/dL (2.5-4.9); POTASSIUM 4.2 mmol/L (3.5-5.1)
[2018-12-29 08:00] VITALS: BP 149/93
[2018-12-29] MEDS: ENOXAPARIN SODIUM 40 MG/0.4 ML DISP.SYRIN SQ SCH (08:10)
[2018-12-29] MEDS ORDERED: Sodium Phosphate 15 MMOL in IV D5W 250 ML IV ONE (13:00)
[2018-12-29 16:00] VITALS: BP 146/89
--- NOTE | 2018-12-29 17:56 | NUR ---
RN NOTE WAS NOTIFIED BY PHARMACY IF MD WANTS TO CONTINUE D5 1/2 NS [address] BAIRES MADE AWARE AND STATING ""IF IT IS NORMAL THEN IT IS FINE", PHARMACY MADE AWARE AND THEY WILL CONTINUE IVF
--- NOTE | 2018-12-29 18:14 | NUR ---
RN NOTE PT HAD TWO BM THROUGHOUT THE SHIFT
--- NOTE | 2018-12-29 18:18 | NUR ---
RN CLOSING NOTE PT IN BED AT LOWEST AND LOCKED POSITION WITH SIDE RAILS UPX2, A/O X4 BREATHING EVEN AND UNLABORED WITH NO DISTRESS OR PAIN, MAXIMO DRAIN IN PLACE WITH 12ML OUT TODAY NOTED TO BE SEROSANGUINEOUS, PT IS AMBULATORY, HAD 2 BM THROUGHOUT SHIFT, SAFETY PRECAUTIONS IN PLACE, CALL LIGHT WITHIN REACH, ALL NEEDS ATTENDED TO, WILL ENDORSE TO NIGHT RN FOR CARLA.
--- NOTE | 2018-12-29 19:00 | NUR ---
RN esvin opening notes Received Pt from morning nurse. Pt is alert and oriented X4. Pt is sleeping in bed comfortably. Awaken easily. Respiration is normal. No SOB. No nausea or vomiting. Pt denies any pain or discomfort at this time. Pt states " I just want to sleep." Surgery site is clean, dry and intact. MAXIMO drain is intact and patent and draining serosanguinese. IV sites at Left wrist # 22 is clean, intact, patent and infusing well D5 1/2 NS with KCL 20 meq @ 100 ml/hr. Per morning nurse Pt was able to walk with a walker today and Pt had two bowel movement today. Instructed to call. Safety precautions is maintained. Bed at low position, brakes locked, side rails upX2 and call light is within reach. Will continue to monitor and assist all needs.
[2018-12-29 20:00] VITALS: BP 153/85
--- NOTE | 2018-12-29 20:45 | NUR ---
SULLY mcallister notes Pt was able to ambulate thru nursing station with a walker. No SOB. No pain or discomfort. Pt tolerated activity well.
[2018-12-29 22:00] VITALS: BP 156/86
--- NOTE | 2018-12-29 22:37 | NUR ---
RN medsurg notes Administered Ambien 5 mg/1 tab/PO as ordered for sleep per Pt's request. Instructed to call. Will continue to monitor.
--- NOTE | 2018-12-29 22:57 | NUR ---
RN medsurg notes Informed and notified Dr. Ogden about Pt's BP and Pt's having loose BM. informed just keep monitoring. Will continue to monitor.
--- NOTE | 2018-12-30 04:34 | NUR ---
RN esvin notes Pt is ambulating with a walker in a hallway and nursing station. No SOB. No pain or discomfort. Pt tolerated activity well.
[2018-12-30] MEDS: METOCLOPRAMIDE HCL 10 MG/2 ML VIAL IV SCH (05:21)
[2018-12-30 05:39] VITALS: BP 149/86
--- NOTE | 2018-12-30 06:40 | NUR ---
RN medsurg closing notes Pt is resting in bed comfortably. Awaken easily. Respiration is normal in room air. No SOB. No nausea or vomiting. Pt denies any pain or discomfort at this time. Pt states ' I want to go home, I can't sleep here." IV sites at L wrist is clean, intact, patent and infusing well D5 1/2 NS with KCL 20 meq @ 100ml/hr. MAXIMO drain is intact, patent and draining 12 ml serous sanguinese. Routine meds given as ordered. All needs met and attended. Kept Pt clean, dry and warm. Instructed to call. Safety precautions is maintained. Bed at low position, brakes locked, side rails upX2 and call light is within reach. Will endorse to morning nurse for CARLA.
[2018-12-30 07:00] LABS: HEMATOCRIT 32 % (39-51); LYMPHOCYTES % (AUTO) 7.2 % (20.0-44.0); MEAN CORPUSCULAR HGB CONC 34 g/dl (31.0-36.0); MEAN CORPUSCULAR VOLUME 90 fL (80-96); MONOCYTES # (AUTO) 1.2 /CMM (0.1-1.30); NEUTROPHILS # (AUTO) 11.1 /CMM (1.8-8.9); NEUTROPHILS % (AUTO) 83.8 % (43.0-81.0); PLATELET COUNT (AUTO) 196 /CMM (150-450); WHITE BLOOD COUNT (AUTO) 13.2 K/uL (4.3-11.0)
--- NOTE | 2018-12-30 07:10 | NUR ---
RN INITIAL NOTE PATIENT IN BED, AWAKE AND ALERTX4. VERBALIZES THAT HE REALLY WANTS TO GO HOME BECAUSE HE'S NOT HAVING ENOUGH SLEEP. ON ROOM AIR, NO COMPLAINS OF ANY PAIN NOR SOB AT THIS TIME. HAS A MAXIMO DRAIN, 12ML OUT FROM [facility]. HAS SURGICAL INCISIONS, DRESSINGS TO BE CHANGED BY AN MD PER NOC SHIFT RN. ON FULL LIQUID DIET. HAS A LEFT WRIST #22 WITH D5 HALF NS WITH KCL 20MEQ RUNNING AT 100 ML/HR. PER NOC SHIFT, PATIENT WAS GIVEN AMBIEN LAST NIGHT TO SLEEP. PATIENT'S SBP WAS AROUND 150s LAST NIGHT. PER NOC SHIFT, SHE CALLED MD AND MADE AWARE. NO NEW ORDERS. WILL CHECK BP THIS AM. BED LOCKED AND IN LOWEST POSITION. CALL LIGHT WITHIN REACH.WILL CONT TO MONITOR
[2018-12-30 07:15] LABS: CREATININE 0.9 mg/dL (0.6-1.3); MAGNESIUM 1.9 mg/dL (1.8-2.4); PHOSPHORUS 2.6 mg/dL (2.5-4.9); POTASSIUM 3.6 mmol/L (3.5-5.1)
[2018-12-30 07:32] VITALS: BP 150/83
--- NOTE | 2018-12-30 08:15 | NUR ---
RN NOTE DR FRENCH AT BEDSIDE, REMOVED THE MAXIMO DRAIN. COVERED WITH 4X4 GAUZE DRESSING. ORDER TO SEE HIM IN A WEEK FOR STAPLE REMOVAL. DIET CHANGED TO SOFT DIET, CALLED KITCH[employer] TO BRING THE FOOD
[2018-12-30] MEDS: ENOXAPARIN SODIUM 40 MG/0.4 ML DISP.SYRIN SQ SCH (08:58)
--- NOTE | 2018-12-30 11:00 | NUR ---
CATH LAB NOTE PATIENT LEFT VIA WHEELCHAIR ACCOMPANIED BY CLAY STAIN MIXER AND THE PATIENT'S . PATIENT IS VERY MUCH AWARE OF THE DC PLAN AND WILL SEE DR FRENCH IN A WEEK. IV SITE AND ID BANDS REMOVED. NO COMPLAINS OF ANY PAIN NOR SOB AT THIS TIME. EXIT CARE DOCUMENTS SHOWED AND EXPLAINED TO THE PATIENT.
== END 2018-12-30 10:30 | disposition home or self-care (01) | DRG 329 ==
LOC: DS 05:56 → MED 05:58
PROVIDERS: ADMIT Internal Medicine; ATTEND Internal Medicine
PROC: 0DJD8ZZ Inspection of Lower Intestinal Tract, Via Natural or Artificial Opening Endoscopic (ICD-10-PCS; principal; 2018-12-26)
PROC: 0DQP0ZZ Repair Rectum, Open Approach (ICD-10-PCS; 2018-12-26)
PROC: 0DQN0ZZ Repair Sigmoid Colon, Open Approach (ICD-10-PCS; 2018-12-26)
PROC: 0DNU0ZZ Release Omentum, Open Approach (ICD-10-PCS; 2018-12-26)
DX: Z43.3 Encounter for attention to colostomy (principal); N17.0 Acute kidney failure with tubular necrosis; K56.7 Ileus, unspecified; I10 Essential (primary) hypertension
CPT/HCPCS: 36415; 74018; 80048-TC; 83735-TC; 84100-TC; 85025-TC; 86850-TC; 87081-TC; 88305-TC; 88307-TC; 97116-TC; 97530-TC; A4216; A6253; A9563; G0378; J0690; J1100; J1170; J1200; J1610; J1650; J2270; J2405; J2710; J2765; J3010; J3480; J3490; J7030; J7060

== ENCOUNTER 2019-04-27 06:33 | Day surgery (SDC) | payer MEDICARE, OTHER ==
[2019-04-27] MEDS ORDERED: MIDAZOLAM HCL 2 MG/2ML VIAL ONE (09:19)
[2019-04-27] MEDS ORDERED: ROCURONIUM BROMIDE 50 MG/5 ML ONE (09:19)
[2019-04-27] MEDS ORDERED: BUPIVACAINE 0.5 % PF 150 MG/30 ML VIAL ONE (09:26)
[2019-04-27] MEDS ORDERED: BACITRACIN 50000 UNITS/VIAL ONE (09:26)
[2019-04-27] MEDS ORDERED: FLUMAZENIL 0.5 MG VIAL ONE (10:03)
[2019-04-27] MEDS ORDERED: HYDROMORPHONE 1 MG/1 ML DISP.SYRIN ONE (10:19)
== END 2019-04-27 12:10 | disposition home or self-care (01) ==
LOC: DS 06:33
PROVIDERS: ATTEND Surgery
DX: K43.2 Incisional hernia without obstruction or gangrene (principal); I10 Essential (primary) hypertension; Z98.890 Other specified postprocedural states
CPT/HCPCS: 36415; 49560; 49568; 86850; A6209 ×2; J1170; J2250; J3490 ×2; J0690; J1100; J1885; J2405; J2704

== ENCOUNTER 2021-05-29 13:28 | Outpatient (CLI) | payer MEDICARE, OTHER | END 2021-05-29 23:59 | disposition home or self-care (01) | LOC: LAB 13:28 | PROVIDERS: ATTEND Surgery | DX: Z01.812 Encounter for preprocedural laboratory examination (principal); Z20.822 Contact with and (suspected) exposure to COVID-19 | CPT/HCPCS: C9803; U0003 ==

== ENCOUNTER 2021-06-05 05:47 | Day surgery (SDC) | payer MEDICARE, OTHER ==
[~2021-06-05] VITALS: Ht 177.8 cm; Wt 63.5 kg
[~2021-06-05 05:47] MED LIST changes: +ANESTHESIA TRAY IN PYXIS 1 EA TRAY MC ONE
--- NOTE | 2021-06-05 06:00 | NUR ---
MS RN NOTES CAME DAY SURGERY SCHEDULED,ALERT,ORIENTED X4,AMBULATORY,GOING FOR RIGHT INGUINAL HERNIA REPAIR,SALINE LOCK PLACE ON RIGHT FOREARM #20,VITAL SIGNS STABLE.
[2021-06-05] MEDS ORDERED: BUPIVACAINE 0.5 % PF 150 MG/30 ML VIAL ONE (06:58)
--- NOTE | 2021-06-05 07:00 | NUR ---
MS RN NOTES DOWN TO SURGERY BY IN STABLE CONDITION
[2021-06-05] MEDS ORDERED: HYDROMORPHONE INJ 2 MG/ML DISP.SYRIN ONE (07:24)
--- NOTE | 2021-06-05 09:10 | NUR ---
RN NOTES RECEIVED PATIENT IN STABLE CONDITION. S/P R INGUINAL HERNIA REPAIR. DRESSING CLEAN, DRY AND INTACT. VITAL SIGNS: TEMP 98.0, HR 65, RR 17, BP 126/79, O2 SAT 98%. NO SIGNS OF RESPIRATORY DISTRESS NOTED. NO COMPLAINTS OF PAIN VERBALIZED AT THIS TIME. NEW ORDERS ARE FAXED. WILL CARRY OUT ORDERS AND CONTINUE MONITORING PATIENT.
[2021-06-05 09:14] VITALS: BP 126/73
--- NOTE | 2021-06-05 13:33 | NUR ---
RN NOTES PATIENT IS MEDICALLY STABLE FOR DISCHARGE. VITAL SIGNS WNL. NO S/SX OF RESPIRATORY DISTRESS NOTED. NO COMPLAINTS OF PAIN VERBALIZED AT THIS TIME. PATIENT WAS EDUCATED ON POST OP AND DISCHARGE INSTRUCTIONS. PATIENT VERBALIZED UNDERSTANDING OF CARE. ALL DOCUMENTS WERE SIGNED AND BELONGINGS ACCOUNTED FOR. IV ACCESS AND ID BAND REMOVED. PATIENT LEFT FACILITY VIA PRIVATE CAR ACCOMPANIED BY FAMILY MEMBER, KIRK.
== END 2021-06-05 16:00 | disposition home or self-care (01) ==
LOC: DS 05:47 → UNDOADMIN 05:48 → MED 05:48 → UNDODISIN 13:40 → DS 16:00
PROVIDERS: ATTEND Surgery
DX: K40.91 Unilateral inguinal hernia, without obstruction or gangrene, recurrent (principal); N17.9 Acute kidney failure, unspecified; I10 Essential (primary) hypertension; M54.50 Low back pain, unspecified; K21.9 Gastro-esophageal reflux disease without esophagitis; K65.0 Generalized (acute) peritonitis; E43 Unspecified severe protein-calorie malnutrition; Z98.890 Other specified postprocedural states; Z79.899 Other long term (current) drug therapy
CPT/HCPCS: 36415; 49520; 85730; 87081; A6209; C1781; J0690; J1100; J1170; J1885; J2405; J2704; J3490 ×2; J7030; G0378